=== PATIENT | female | born 1975 | race Caucasian/White ===

== ENCOUNTER 2025-02-11 17:34 | Emergency (ER) | payer OTHER, SELFPAY ==
[2025-02-11 17:57] VITALS: BP 150/80; PULSE 80; TEMP 36.7; O2SAT 98; BMI 48.9
--- NOTE | 2025-02-11 18:27 | ED_ITS ---
HPI HPI - Extremity Injury (Lower) General Chief Complaint: Extremity Injury, Lower Stated Complaint: RIGHT KNEE PAIN Time Seen by Provider: 02/11/25 18:27 Mode of arrival: walk-in History of Present Illness HPI Narrative: 49 year old female presents to the ED for pain to her right medial and posterior knee. Onset was 1-2 weeks ago. Denies fever, chills, injury, weakness, N/T. She was evaluated at an urgent care last week. States she was told she may have a cyst. States while she was having her x-rays completed today she felt something pop. Related Data Previous Rx's ?Medication ?Instructions ?Recorded hydrocodone 5 mg-acetaminophen 325 1 tab PO Q8H PRN pain 4 days #12 02/11/25 mg tablet tabs Allergies Allergy/AdvReac Type Severity Reaction Status Date / Time No Known Drug Allergies Allergy Verified 02/11/25 17:56 Opioid HPI Opioid Management Most Recent Pain and Opioid Data: No Data to Display Review of Systems ROS Constitutional Denies: fever or chills Cardiovascular Denies: chest pain Respiratory Denies: shortness of breath Musculoskeletal Reports: extremity pain and extremity swelling; Denies: back pain Neurological Denies: numbness in extremities or weakness in extremities PFSH PFSH Social History Little interest or pleasure in doing things: not at all Feeling down, depressed, or hopeless: not at all Exam Constitutional Vital Signs, click to edit/add: Last Vital Signs Temp 98.1 F 02/11/25 17:57 Pulse 80 02/11/25 17:57 Resp 18 02/11/25 17:57 BP 150/80 H 02/11/25 17:57 Pulse Ox 98 02/11/25 17:57 O2 Del Method Room Air 02/11/25 17:57 Common normals: no apparent distress, oriented x3 and alert General appearance: cooperative HENMT Common normals: moist oral mucous membranes Neck & C-Spine Common normals: supple Chest Chest: symmetrical chest wall rise Respiratory Common normals: normal respiratory effort Effort & inspection: able to speak in complete sentences Cardio Common normals: regular rhythm Peripheral pulses: posterior tibial pulses present and dorsalis pedis pulses present Extremity Other: Tenderness to right medial and posterior knee. No calf tenderness. Mild swelling noted to knee area. No deformity or discoloration. Neuro Common normals: oriented x3 and moves all extremities Sensorium/orientation: awake and alert Course Vital Signs Vital signs: Vital Signs Temperature 98.1 F 02/11/25 17:57 Pulse Rate 80 02/11/25 17:57 Respiratory Rate 18 02/11/25 17:57 Blood Pressure 150/80 H 02/11/25 17:57 Pulse Oximetry 98 02/11/25 17:57 Oxygen Delivery Method Room Air 02/11/25 17:57 Temperature 98.1 F 02/11/25 17:57 Pulse Rate 80 02/11/25 17:57 Respiratory Rate 18 02/11/25 17:57 Blood Pressure 150/80 H 02/11/25 17:57 Pulse Oximetry 98 02/11/25 17:57 Oxygen Delivery Method Room Air 02/11/25 17:57 MDM - Extremity Injury (Lower) MDM Narrative Medical decision making narrative: X-rays showed soft tissue swelling without acute osseous abnormality evident; mild degenerative changes in the knee. Venous Doppler of the RLE was negative. Findings were discussed with the patient. An aubrey wrap was applied to the right knee. The application was checked and was appropriate; the RLE remained NVI. Follow up with pcp and/or an orthopedist for a recheck, further evaluation and treatment. OARRS was reviewed. A prescription was provided for [place]. Medical Records Attestation: I reviewed the patient's medical records. Imaging Data XR : Attestation: I have reviewed the pertinent imaging results. Radiologist's impression: X-ray right knee and right tib/fib: Soft tissue swelling without acute osseous abnormality evident. Mild degenerative changes in the knee. Venous Doppler of the RLE: Negative for right lower extremity DVT. Discharge Plan Discharge Chief Complaint: Extremity Injury, Lower Clinical Impression: Knee pain, right Patient Disposition: Home, Self-Care Time of Disposition Decision: 20:18 Condition: Good Mode of Transportation: Private Vehicle Prescriptions / Home Meds: New hydrocodone-acetaminophen 5-325 mg tablet 1 tab PO Q8H PRN (Reason: pain) 4 Days Qty: 12 0RF Print Language: [place] Instructions: Knee Pain (ED) Referrals: CHRIS BOWEN [Primary Care Provider] - 1 week Jerry Gerber MD [Physician] - 1 week
[2025-02-11] MEDS: HYDROCODONE/ACET 5-325 MG TABLET 1 TAB PO (18:45)
== END 2025-02-11 20:23 | disposition home or self-care (01) ==
PROVIDERS: Emergency Provider Emergency Medicine; PCP Internal Medicine
DX: M25.561 Pain in right knee (principal); M79.89 Other specified soft tissue disorders
CPT/HCPCS: 73562; 73590; 93971; 99285

== ENCOUNTER 2025-02-28 10:26 | Emergency (ER) | payer OTHER, SELFPAY ==
[2025-02-28 10:27] VITALS: BP 137/86; PULSE 85; TEMP 36.9; O2SAT 98; BMI 48.1
--- NOTE | 2025-02-28 10:43 | ECG_ITS ---
[facility] Test Date: 2025-02-28 Pat Name: CAMILA ARCHIBALD Department: Room: - Gender: Female Hospice Admitting Clerk: : 1975 Requested By: [id number] Order Number: [id number] Reading MD: JEFF DILL M.D. Measurements Intervals [place] Rate: 82 P: 55 CA: 130 QRS: 54 QRSD: 86 T: 49 QT: 368 QTc: 407 Interpretive Statements 1100 Sinus rhythm 9110 normal ECG No previous ECG available for comparison Electronically Signed On 03-01-2025 6:25:00 EDT by JEFF DILL M.D.
--- OUTSIDE RECORDS SUMMARY | 2025-02-28 10:46 | XMS_ITS | CCD ---
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 Name Role Phone MIGUEL CHAIREZ Attending Unavailable MIGUEL CHAIREZ Consulting Unavailable MIGUEL CHAIREZ Admitting DR OLAF Quintero Primary Care Unavailable TITO SCHWARZ Consulting Unavailable PROVIDER, UNKNOWN Attending Unavailable PROVIDER, UNKNOWN Admitting Unavailable LIAT TELLO Referring Unava Olaf Ny MD Primary Care Provider JOSE LUTZ Attending Unavailable HEMLORRANIE PAYNE Attending Unavailable HEMLORRAINE PAYNE Attending Unavailable HEMLORRAINE PAYNE Referring Unavailable HEMLORRAINE PAYNE Attending Unavailable ALTMIKE Attending Unavailable Allergies Allergy Classification Reported Allergen(s) Allergy Type Date of Onset Reaction(s) Facility (1 source) Latex Drug allergy (disorder) 7 [facility] Repository (6 sources) Latex Allergy to substance 1 [facility] Healthcare (6 sources) Semaglutide Propensity to adverse reactions 4 GI intolerance [facility] Medications Current Medications Medication Drug Class(es) Dates Sig (Normalized) Sig (Original) azelastine hydrochloride 0.137 mg/actuat metered dose nasal spray (6 sources) Histamine-1 Receptor Antagonist Start: 07-08-2024 take 1 spray(s) nasal route in the morning Azelastine HCl 137 MCG/SPRAY solution Indications: Seasonal allergic rhinitis due to pollen Administer 1 spray into affected nostril(s) in the morning and 1 spray before bedtime. Do all this for 14 days. 30 mL 07/08/2024 Active Blood Glucose Monitoring Suppl (Blood Glucose Monitor System) w/Device kit (6 sources) Start: 07-08-2024 Blood Glucose Monitoring Suppl (Blood Glucose Monitor System) w/Device kit Indications: Type 2 diabetes mellitus with other specified complication, without long-term current use of insulin ([facility]) 1 each Daily 1 kit 07/08/2024 Active citalopram 40 mg oral tablet (6 sources) Serotonin Reuptake Inhibitor Start: 07-08-2024 take 1 tablet by mouth once daily citalopram (CeleXA) 40 MG tablet Indications: Depression with anxiety Take 1 tablet (40 mg) by mouth Daily 90 tablet 3 07/08/2024 Active metFORMIN hydrochloride 500 mg oral tablet (6 sources) Biguanide Start: 02-04-2025 take 1 tablet by mouth in the morning metFORMIN (Glucophage) 500 MG tablet Indications: Type 2 diabetes mellitus with other specified complication, without long-term current use of insulin (CMS/HCC) Take 1 tablet (500 mg) by mouth in the morning and 1 tablet (500 mg) in the evening. Take with meals. 30 tablet 02/04/2025 Active Start: 07-08-2024 take 1 tablet by juancarlos th in the morning metFORMIN (Glucophage) 500 MG tablet Indications: Type 2 diabetes mellitus with other specified complication, without long-term current use of insulin (CMS/HCC) Take 1 tablet (500 mg) by mouth in the morning and 1 tablet (500 mg) in the evening. Take with meals. 60 tablet 5 07/08/2024 Active predniSONE 10 mg oral tablet (2 sources) Start: 02-16-2025 End: 02-24-2025 take 1 tablet by mouth three times daily, then take 1 tablet by mouth twice daily, then take 1 tablet by mouth once daily predniSONE (Deltasone) 10 MG tablet Indications: Primary osteoarthritis of right knee Take 1 tablet (10 mg) by mouth 3 (three) times a day for 3 days, THEN 1 tablet (10 mg) 2 (two) times a day for 3 days, THEN 1 tablet (10 mg) Daily for 3 days. 18 tablet 02/16/2025 02/24/2025 Active Completed/Discontinued Medications Medication Drug Class(es) Dates Sig (Normalized) Sig (Original) amoxicillin 875 mg / clavulanate 125 mg oral tablet (2 sources) Penicillin-class Antibacterial Start: 10-07-2024 End: 10-14-2024 take 1 tablet by mouth in the morning amoxicillin-clavu lanate (Augmentin) 875-125 MG tablet Indications: Acute non-recurrent maxillary sinusitis Take 1 tablet (875 mg) by mouth in the morning and 1 tablet (875 mg) in the evening. Take with meals. Do all this for 7 days. 14 tablet 10/07/2024 10/14/2024 cetirizine hydrochloride 10 mg oral tablet (6 sources) Histamine-1 Receptor Antagonist Start: 07-08-2024 End: 02-16-2025 take 1 tablet by mouth once daily cetirizine (ZyrTEC) 10 MG tablet Indications: Seasonal allergic rhinitis due to pollen Take 1 tablet (10 mg) by mouth Daily 30 tablet 07/08/2024 02/16/2025 Discontinued (Other) fluticasone propionate 0.05 mg/actuat metered dose nasal spray (6 sources) Corticosteroid Start: 02-04-2024 End: 02-16-2025 take 2 spray(s) nasal route once daily as needed for rhinitis fluticasone (Flonase) 50 MCG/ACT nasal spray Indications: Acute non-recurrent maxillary sinusitis Administer 2 sprays into each nostril Daily as needed for rhinitis Shake gently. Before first use, prime pump. After use, clean tip and replace cap. 16 g 02/04/2024 02/16/2025 Discontinued (Other) Problems Active Problems Problem Classification Problem Date Documented Date Episodic/Chronic Anxiety disorders (6 sources) Mixed anxiety and depressive disorder; Translations: [Other specified anxiety disorders] Onset: 07-08-2024 07-08-2024 Chronic Asthma (6 sources) Asthma; Translations: [Unspecified asthma, uncomplicated] Onset: 07-08-2024 07-08-2024 Chronic Diabetes mellitus without complication (18 sources) Type 2 diabetes mellitus; Translations: [Type 2 diabetes mellitus without complications] Onset: 07-08-2024 Resolved: 07-08-2024 10-15-2024 Chronic Disorders of lipid metabolism (6 sources) Raised low density lipoprotein cholesterol; Translations: [Pure hypercholesterolemia, unspecified] Onset: 07-08-2024 07-08-2024 Chronic E Codes: Natural/environment (1 source) Other and unspecified overexertion or strenuous movements or postures, initial encounter; Translations: [OTH AND UNS OVREXRT/STRN MVMT/POS INT] Onset: 10-03-2021 Episodic Osteoarthritis (2 sources) Osteoarthritis of right knee joint; Translations: [Unilateral primary osteoarthritis, right knee] 02-16-2025 Chronic Other connective tissue disease (3 sources) Pain in left leg; Translations: [PAIN IN LEFT LEG] Onset: 10-02-2021 Episodic Other endocrine disorders (6 sources) Polycystic ovary syndrome; Translations: [Polycystic ovarian syndrome] Onset: 07-08-2024 07-08-2024 Chronic Other nervous system disorders (6 sources) Chronic pain; Translations: [Other chronic pain] Onset: 07-08-2024 Resolved: 07-08-2024 07-08-2024 Chronic Other nutritional; endocrine; and metabolic disorders (10 sources) Obesity caused by energy imbalance; Translations: [Morbid (severe) obesity due to excess calories] Onset: 07-08-2024 10-07-2024 Chronic Other nutritional; endocrine; and metabolic disorders (8 sources) Body mass index 40+ - severely obese; Translations: [Body mass index (BMI) 50.0-59.9, adult] Onset: 07-08-2024 Resolved: 10-07-2024 10-07-2024 Chronic Other screening for suspected conditions (not mental disorders or infectious disease) (1 source) Encounter for screening mammogram for malignant neoplasm of breast; Translations: [Encounter for screening mammogram for malignant neoplasm of breast] Onset: 08-07-2023 Episodic Other upper respiratory disease (6 sources) Seasonal allergic rhinitis; Translations: [Other seasonal allergic rhinitis] Onset: 07-08-2024 07-08-2024 Chronic Other upper respiratory infections (2 sources) Acute maxillary sinusitis; Translations: [Acute maxillary sinusitis, unspecified] 10-07-2024 Episodic Sprains and strains (1 source) Strain of other specified muscles, fascia and tendons at thigh level, left thigh, initial encounter; Translations: [STRAIN OTH MUSC FASC THIGH LT INIT] Onset: 10-03-2021 Episodic Past or Other Problems Problem Classification Problem Date Documented Da te Episodic/Chronic Diseases of white blood cells (6 sources) Leukocytosis; Translations: [Elevated white blood cell count, unspecified] Onset: 07-08-2024 Resolved: 07-08-2024 07-08-2024 Chronic Joint disorders and dislocations; trauma-related (6 sources) Derangement of left knee; Translations: [Unspecified internal derangement of left knee] Onset: 07-08-2024 Resolved: 07-08-2024 07-08-2024 Chronic Neoplasms of unspecified nature or uncertain behavior (6 sources) Thrombocytosis; Translations: [Thrombocytosis] Onset: 07-08-2024 07-08-2024 Episodic Other connective tissue disease (6 sources) Muscle pain; Translations: [Myalgia, unspecified site] Onset: 01-01-2024 01-01-2024 Episodic Other upper respiratory infections (6 sources) Sinusitis; Translations: [Chronic sinusitis, unspecified] Onset: 07-08-2024 Resolved: 07-08-2024 07-08-2024 Chronic Results Test Name Value Interpretation Reference Range Facil ity ALBUMIN, RANDOM URINE W/CREA TININEon 02-09-2025 ALBUMIN, URINE 1.5 mg/dL Normal See Note: [facility] Comment on above: Result Comment: Refe rence Range: Reference Range Not established Performed By: #### 6 517, 490, 3109 #### [facility] [address], [address] [place] [address] Veterinary Milk Specialist: Hermelindo Watson MD #### [id number], [id number] #### [facility] [address] [place] [phone] Veterinary Milk Specialist: Damari Marin ALBUMIN/CREATININE RATIO, RANDOM URINE 5 mg/g creat Normal <30 [facility] Comment on above: Result Comment: The ADA defines abnormalities in albumin excretion as follows: Albuminuria Category Result (mg/g creatinine) Normal to Mildly increased <30 Moderately increased 30-299 Severely increased > OR = 300 The ADA recommends that at least two of three specimens collected within a 3-6 month period be abnormal before considering a patient to be within a diagnostic category. Performed By: #### 6 517, 591, 8262 #### [facility] [address], [address] [place], [place] [id number] Veterinary Milk Specialist: Hermelindo Watson MD #### [id number], 6419 #### [facility] [address] [place] [phone] Veterinary Milk Specialist: Damari Marin Creatinine (U) [Mass/Vol] 273 mg/dL Normal 20-275 [facility] Comment on above: Performed By: #### 6 517, 496, 9909 #### [facility] [address], [address] [place] [address] Veterinary Milk Specialist: Hermelindo Watson MD #### [id number], 1759 #### [facility] [address] Veterinary Milk Specialist: Damari Marin CBC (H/H, RBC, INDICES, WBC, PLT)on 02-09-2025 Erythrocyte distribution width (RBC) [Ratio] 13.7 % Normal 11.0-15.0 [facility] Comment on above: Performed By: #### 6 517, 496, 7600 #### [facility] [address], [address] [place] [address] Veterinary Milk Specialist: Hermelindo Watson MD #### [id number], 1759 #### [facility] [address] Veterinary Milk Specialist: Damari Marin Hematocrit (Bld) [Volume fraction] 42.6 % Normal 35.0-45.0 [facility] Comment on above: Performed By: #### 6 517, 496, 7600 #### [facility] [address], [address] [place] [address] Veterinary Milk Specialist: Hermleindo Watson MD #### [id number], 1759 #### [facility] [address] Veterinary Milk Specialist: Damari Marin Hemoglobin (Bld) [Mass/Vol] 13.9 g/dL Normal 11.7-15.5 [facility] Comment on above: Performed By: #### 6 517, 496, 7600 #### [facility] [address], [address] [place] [address] Veterinary Milk Specialist: Hermelindo Watson MD #### [id number], 1759 #### [facility] Veterinary Milk Specialist: Damari Marin MCH (RBC) [Entitic mass] 29.6 pg Normal 27.0-33.0 [facility] Comment on above: Performed By: #### 6 517, 496, 7600 #### [facility] [place] [address] Veterinary Milk Specialist: Hermelindo Watson MD #### [id number], 175 #### [facility] [address] Veterinary Milk Specialist: Damari Marin MCHC (RBC) [Mass/Vol] 32.6 g/dL Normal 32.0-36.0 [facility] Comment on above: Result Comment: For adults, a slight decrease in the calculated MCHC value (in the range of 30 to 32 g/dL) is most likely not clinically significant; however, it should be interpreted with caution in correlation with other red cell parameters and the patient's clinical condition. Performed By: #### 6 517, 496, 8320 #### [facility] [place] [address] Veterinary Milk Specialist: Hermelindo Watson MD #### [id number], 175 #### [facility] [address] Veterinary Milk Specialist: Damari Marin MCV (RBC) [Entitic vol] 90.8 fL Normal 80.0-100.0 [facility] Comment on above: Performed By: #### 6 517, 499, 9600 #### [facility] [place] [address] Veterinary Milk Specialist: Hermelindo Watson MD #### [id number], 175 #### [facility] [address] Veterinary Milk Specialist: Damari Marin Platelet mean volume (Bld) [Entitic vol] 8.5 fL Normal 7.5-12.5 [facility] Comment on above: Performed By: #### 6 517, 496, 7600 #### [facility] [address], [address] [place] [address] Veterinary Milk Specialist: Hermelindo Watson MD #### [id number], 175 #### [facility] Veterinary Milk Specialist: Damari Marin Platelets (Bld) [#/Vol] 397 10*3/uL Normal 140-400 [facility] Comment on above: Performed By: #### 6 517, 496, 7600 #### [facility] [address], [address] [place] [address] Veterinary Milk Specialist: Hermelindo Watson MD #### [id number], 1759 #### [facility] Veterinary Milk Specialist: Damari Marin RBC (Bld) [#/Vol] 4.69 10*6/uL Normal 3.80-5.10 [facility] Comment on above: Performed By: #### 6 517, 496, 7600 #### [facility] [address], [address] [place] [address] Veterinary Milk Specialist: Hermelindo Watson MD #### [id number], 1759 #### [facility] [address] Veterinary Milk Specialist: Damari Marin WBC (Bld) [#/Vol] 8.0 10*3/uL Normal 3.8-10.8 [facility] Comment on above: Performed By: #### 6 517, 496, 7600 #### [facility] [address], [address] [place] [address] Veterinary Milk Specialist: Hermelindo Watson MD #### [id number], 1759 #### [facility] [address] Veterinary Milk Specialist: Damari Marin COMPREHENSIVE METABOLIC PANE [facility] 02-09-2025 Albumin [Mass/Vol] 3.7 g/dL Normal 3.6-5.1 [facility] Comment on above: Performed By: #### 6 517, 496, 7600 #### [facility] [address], [address] [place] [address] Veterinary Milk Specialist: Hermelindo Watson MD #### [id number], 1759 #### [place] [address] Veterinary Milk Specialist: Damari Marin Albumin/Globulin [Mass ratio] 1.2 {ratio} Normal 1.0-2.5 [facility] Comment on above: Performed By: #### 6 517, 496, 7600 #### [facility] [address], [address] [place] [address] Veterinary Milk Specialist: Hermelindo Watson MD #### [id number], 1759 #### [place] [address] Veterinary Milk Specialist: Damari Marin ALP [Catalytic activity/Vol] 55 U/L Normal 31-125 [facility] Comment on above: Performed By: #### 6 517, 496, 7600 #### [facility] [address], [address] [place] [address] Veterinary Milk Specialist: Hermelindo Watson MD #### [id number], 1759 #### [place] [address] Veterinary Milk Specialist: Damari Marin ALT [Catalytic activity/Vol] 20 U/L Normal 6-29 [facility] Comment on above: Performed By: #### 6 517, 496, 7600 #### [facility] [address], [address] [place] [address] Veterinary Milk Specialist: Hermelindo Watson MD #### [id number], 1759 #### [facility] [phone] Veterinary Milk Specialist: Damari Marin AST [Catalytic activity/Vol] 23 U/L Normal 10-35 [facility] Comment on above: Performed By: #### 6 517, 496, 7600 #### [facility] [address], [address] [place] [address] Veterinary Milk Specialist: Hermelindo Watson MD #### [id number], 1759 #### [facility] [phone] Veterinary Milk Specialist: Damari Marin Bilirubin [Mass/Vol] 0.6 mg/dL Normal 0.2-1.2 [facility] Comment on above: Performed By: #### 6 517, 496, 7600 #### [facility] [address], [address] [place] [address] Veterinary Milk Specialist: Hermelindo Watson MD #### [id number], 1759 #### [facility] [address] [place] [address] Veterinary Milk Specialist: Damari Marin BUN/CREATININE RATIO SEE NOTE: Normal 6- [facility] Comment on above: Result Comment: Not Reported: BUN and Creatinine are within reference range. Performed By: #### 6 517, 496, 7600 #### [facility] [address], [address] [place] [address] Veterinary Milk Specialist: Hermelindo Watson MD #### [id number], 1759 #### [facility] [address] [place] [address] Veterinary Milk Specialist: Damari Marin Calcium [Mass/Vol] 8.8 mg/dL Normal 8.6-10.2 [facility] Comment on above: Performed By: #### 6 517, 496, 7600 #### [facility] [address], [address] [place] [address] Veterinary Milk Specialist: Hermelindo Watson MD #### [id number], 1759 #### [facility] [address] [place] [address] Veterinary Milk Specialist: Damari Marin Chloride [Moles/Vol] 105 mmol/L Normal 98-110 [facility] Comment on above: Performed By: #### 6 517, 496, 7600 #### [facility] [address], [address] [place] [address] Veterinary Milk Specialist: Hermelindo Watson MD #### [id number], 1759 #### [facility] [address] [place] [address] Veterinary Milk Specialist: Damari Marin CO2 [Moles/Vol] 23 mmol/L Normal 20-32 [facility] Comment on above: Performed By: #### 6 517, 496, 7600 #### [facility] [address], [address] [place] [address] Veterinary Milk Specialist: Hermelindo Watson MD #### [id number], 1759 #### [facility] [address] Veterinary Milk Specialist: Damari Marin Creatinine [Mass/Vol] 0.70 mg/dL Normal 0.50-0.99 [facility] Comment on above: Performed By: #### 6 517, 496, 7600 #### [facility] [place] [address] Veterinary Milk Specialist: Hermelindo Watson MD #### 64720, 1759 #### [facility] [address] Veterinary Milk Specialist: Damari Marin GFR/1.73 sq M.predicted among non-blacks MDRD (S/P/Bld) [Vol rate/Area] 107 mL/min/{1.73_m2} Normal > OR = 60 [facility] Comment on above: Performed By: #### 6 517, 496, 7600 #### [facility] [place] [address] Veterinary Milk Specialist: Hermelindo Watson MD #### [id number], 1759 #### [facility] [address] Veterinary Milk Specialist: Damari Marin Globulin (S) [Mass/Vol] 3.0 g/dL Normal 1.9-3.7 [facility] Comment on above: Performed By: #### 6 517, 496, 7600 #### [facility] [place] [address] Veterinary Milk Specialist: Hermelindo Watson MD #### 21940, 1759 #### [facility] [phone] Veterinary Milk Specialist: Damari Marin Glucose [Mass/Vol] 172 mg/dL High 65-99 [facility] Comment on above: Result Comment: Fasting reference interval For someone without known diabetes, a glucose value >125 mg/dL indicates that they may have diabetes and this should be confirmed with a follow-up test. Performed By: #### 6 517, 496, 7600 #### [facility] [address], [address] [place] [address] Veterinary Milk Specialist: Hermelindo Watson MD #### [id number], 1759 #### [facility] [address] Veterinary Milk Specialist: Damari Springeri Potassium [Moles/Vol] 4.6 mmol/L Normal 3.5-5.3 [facility] Comment on above: Performed By: #### 6 517, 496, 7600 #### [facility] [address], [address] [place] [address] Veterinary Milk Specialist: Hermelindo Watson MD #### [id number], 1759 #### [facility] [address] Veterinary Milk Specialist: Damari Springeri Protein [Mass/Vol] 6.7 g/dL Normal 6.1-8.1 [facility] Comment on above: Performed By: #### 6 517, 496, 7600 #### [facility] [address], [address] [place] [address] Veterinary Milk Specialist: Hermelindo Watson MD #### [id number], 1759 #### [facility] [address] [place] [address] Veterinary Milk Specialist: Damari Carballo Flati Sodium [Moles/Vol] 136 mmol/L Normal 135-146 [facility] Comment on above: Performed By: #### 6 517, 496, 7600 #### [facility] [address], [address] [place] [address] Veterinary Milk Specialist: Hermelindo Watson MD #### 64459, 1759 #### [facility] [address] [place] [phone] Veterinary Milk Specialist: Damari Marin Urea nitrogen [Mass/Vol] 11 mg/dL Normal 7-25 [facility] Comment on above: Performed By: #### 6 517, 496, 7600 #### [facility] [address], [address] [place], [place] [id number] Veterinary Milk Specialist: Hermelindo Watson MD #### [id number], 1759 #### [facility] [address] [place] [phone] Veterinary Milk Specialist: Damari Marin HEMOGLOBIN A1con 02-09-2025 HEMOGLOBIN A1c 7.4 % of total Hgb High <5.7 [facility] Comment on above: Result Comment: For someone without known diabetes, a hemoglobin A1c value of 6.5% or greater indicates that they may have diabetes and this should be confirmed with a follow-up test. For someone with known diabetes, a value <7% indicates that their diabetes is well controlled and a value greater than or equal to 7% indicates suboptimal control. A1c targets should be individualized based on duration of diabetes, age, comorbid conditions, and other considerations. Currently, no consensus exists regarding use of hemoglobin A1c for diagnosis of diabetes for children. Performed By: #### 6 517, 496, 7600 #### [facility] [address], [address] [place] [address] Veterinary Milk Specialist: Hermelindo Watson MD #### [id number], 1759 #### [facility] [address] [place] [phone] Veterinary Milk Specialist: Damari Marin LIPID PANEL, STANDARDon 01-24 Cholesterol [Mass/Vol] 181 mg/dL Normal <200 [facility] Comment on above: Order Comment: FASTI NG:YES FASTING: YES Performed By: #### 6 517, 496, 7600 #### [facility] [address], [address] [place] [address] Veterinary Milk Specialist: Hermelindo Watson MD #### 76607, 1759 #### [facility] [address] [place] [address] Veterinary Milk Specialist: Damari Marin Cholesterol in HDL [Mass/Vol] 60 mg/dL Normal > OR = 50 [facility] Comment on above: Order Comment: FASTI NG:YES FASTING: YES Performed By: #### 6 517, 496, 8641 #### [facility] [address] [facility], [address] [place] [phone] Veterinary Milk Specialist: Hermelindo Watson MD #### 42846, 1754 #### [facility] [address] [place] [phone] Veterinary Milk Specialist: Damari Springeri Cholesterol in LDL [Mass/Vol] 104 mg/dL [facility] Comment on above: Order Comment: FASTI NG:YES FASTING: YES Result Comment: Refe rence range: <100 Desirable range <100 mg/dL for primary prevention; <70 mg/dL for patients with CHD or diabetic patients with > or = 2 CHD risk factors. LDL-C is now calculated using the Jameson-Tristian calculation, which is a validated novel method providing better accuracy than the Friedewald equation in the estimation of LDL-C. Jameson SS et al. ALIX. 2013;310(19): 6329-1438 (http://education.[employer]/faq/KDK919) Performed By: #### 6 725, 491, 6120 #### [facility] [address], [address] [place] [phone] Veterinary Milk Specialist: Hermelindo Watson MD #### 80663, 2800 #### [facility] [address] [place] [phone] Veterinary Milk Specialist: Damari Marin Cholesterol.total/C holesterol in HDL [Mass ratio] 3.0 {ratio} Normal <5.0 [facility] Comment on above: Order Comment: FASTI NG:YES FASTING: YES Performed By: #### 6 517, 496, 8383 #### [facility] [address] [facility], [address] [place] [address] Veterinary Milk Specialist: Hermelindo Watson MD #### [id number] #### [facility] [place] [address] Veterinary Milk Specialist: Damari Marin NON HDL CHOLESTEROL 121 mg/dL (calc) Normal <130 [facility] Comment on above: Order Comment: FASTI NG:YES FASTING: YES Result Comment: For patients with diabetes plus 1 major ASCVD risk factor, treating to a non-HDL-C goal of <100 mg/dL (LDL-C of <70 mg/dL) is considered a therapeutic option. Performed By: #### 6 [phone] #### [facility] [address], [address] [place] [address] Veterinary Milk Specialist: Hermelindo Watson MD #### [id number], [id number] #### [facility] [address] [place] [id number] Veterinary Milk Specialist: Damari Marin Triglyceride [Mass/Vol] 82 mg/dL Normal <150 [facility] Comment on above: Order Comment: FASTI NG:YES FASTING: YES Performed By: #### 6 [phone], [phone] #### [facility] [address], [address] [place] [address] Veterinary Milk Specialist: Hermelindo Watson MD #### [id number], [id number] #### [facility] [address] [place] [phone] Veterinary Milk Specialist: Damari Marin Laboratory - Hematology and Cell countson 10-07-2024 HbA1c (Bld) [Mass fraction] 7 % [facility] scroll kit No Panel Informationon 10-07 [facility] Healthcar e BI MAMMOGRAM SCREENING TOMOS YNTHESIS BILATERALon 08-19-2024 BI MAMMOGRAM SCREENING TOMOSYNTHESIS BILATERAL This is a summary report. The complete report is available in the patient's medical record. If you cannot access the medical record, please contact the sending organization for a detailed fax or copy. ADDENDUM #1 ADDENDUM: Images from prior study dated 08/07/2023 are now available for comparison. Findings are similar to the prior exam. No change in the report. ELECTRONICALLY SIGNED BY: Nick Bernard M.D. Examination: BI MAMMOGRAM SCREENING TOMOSYNTHESIS BILATERAL Clinical History: screening Technique: Screening digital mammography study of both breasts was performed with 2-D and 3-D tomosynthesis imaging. No prior exam available for comparison. Findings: There is no evidence of dominant spiculated mass, grouped microcalcifications, or skin thickening which would be suggestive of malignancy. A few benign-appearing calcifications are seen bilaterally. Axillary lymph nodes are noted on the left. IMPRESSION: Impression: No specific evidence of malignancy seen in either breast. Breast Density: There are scattered areas of fibroglandular density BiRads: BIRADS 2 - Benign Recommended follow-up: Routine Screening Mamm ELECTRONICALLY SIGNED BY: Nick Bernard M.D. Normal Not Available MG MAMMO SCREEN BILAT KATHY W /CADon 08-13-2023 MG MAMMO SCREEN BILAT KATHY W/CAD EXAM: BILATERAL SCREENING MAMMOGRAM W/TOMOSYNTHESIS AND CAD CLINICAL HISTORY: Patient is 48 years old and is seen for screening. The patient has no personal history of cancer. The patient has no family history of breast cancer. COMPARISON: This is a baseline study. TECHNIQUE: The following mammographic views were obtained: bilateral CC, CC with tomosynthesis, MLO and MLO with tomosynthesis; left axillary tail; right XCCL and anterior mediolateral oblique. Computer-aided detection was utilized by the radiologist in the interpretation of this examination. MAMMOGRAM FINDINGS: There are scattered areas of fibroglandular densities. No suspicious masses, calcifications, architectural distortion or other abnormalities are seen in either breast. IMPRESSION: There is no mammographic evidence of malignancy in either breast. Routine screening mammogram in 1 year is recommended. BI-RADS Category 1: Negative RISK ASSESSMENT: Estimated lifetime breast cancer risk: Average (less than 15%, as per the Tyrer-Cuzick/ALEISHA model) NCI Lifetime Risk Score: 9.3% Normal [facility] XR HIP LT 2 3V W PELVISon XR HIP LT 2 3V W PELVIS EXAM: XR HIP LT 2 3V W PELVIS, XR FEMUR LT, XR KNEE LT 4V or > HISTORY: Pain COMPARISON: None. TECHNIQUE: 2 views left hip, 2 views left femur, 4 views left knee. FINDINGS: No acute fracture. Hip joint is maintained. There is mild narrowing of the medial compartment of the knee. No effusion. No pathologic calcification. No evidence of radiopaque foreign body. IMPRESSION: 1. No acute bony abnormality. 2. Mild medial compartment osteoarthritis of the left knee. 3. Normal left hip. Electronically authenticated by: TITO SCHWARZ Date: 2021-10-02 03:13 Normal [facility] Vital Signs Date Time Vital Sign Value Performing Clinician Faci lity 02-16-2025 16:40-0400 Body height 162.6 cm Lorraine Hemmer PA Work Phone: [facility] scroll kit 02-16-2025 16:40-0400 Body mass index (BMI) [Ratio] 49.47 kg/m2 Lorraine Hemmer PA Work Phone: [facility] 02-16-2025 16:40-0400 Body weight 130.73 kg Lorraine Hemmer PA Work Phone: [facility] 02-16-2025 16:40-0400 Diastolic blood pressure 82 mm[Hg] Lorraine Hemmer PA Work Phone: [facility] 02-16-2025 16:40-0400 Heart rate 86 /min Lorraine Hemmer PA Work Phone: [facility] 02-16-2025 16:40-0400 Respiratory rate 16 /min Lorraine Hemmer PA Work Phone: [facility] 02-16-2025 16:40-0400 SaO2% (BldA) [Mass fraction] 97 % Lorraine Hemmer PA Work Phone: [facility] scroll kit 02-16-2025 16:40-0400 Systolic blood pressure 130 mm[Hg] Lorraine Hemmer PA Work Phone: [facility] 10-07-2024 16:27-0500 Body height 162.6 cm Lorraine Hemmer PA Work Phone: [facility] 10-07-2024 16:27-0500 Body mass index (BMI) [Ratio] 49.44 kg/m2 Lorraine Hemmer PA Work Phone: [facility] 10-07-2024 16:27-0500 Body weight 130.64 kg Lorraine Humphriesmer PA Work Phone: [facility] 10-07-2024 16:27-0500 Diastolic blood pressure 76 mm[Hg] Lorraine Humphriesmer PA Work Phone: [facility] 10-07-2024 16:27-0500 Heart rate 82 /min Lorraine Hemmer PA Work Phone: [facility] 10-07-2024 16:27-0500 SaO2% (BldA) [Mass fraction] 99 % Lorraine Humphriesmer PA Work Phone: [facility] 10-07-2024 16:27-0500 Systolic blood pressure 130 mm[Hg] Lorraine Hemmer PA Work Phone: [facility] Encounters Encounter Date Encounter Type Care Provider Facility Start: 02-16-2025 End: 02-16-2025 Office outpatient visit 25 minutes Lorraine Roberts PA Work Phone: [facility] Comment on above: Primary osteoarthrit is of right knee (Primary Dx); Type 2 diabetes mellitus with other specified complication, without long-term current use of insulin ([facility]); Morbid (severe) obesity due to excess calories (CMS/[facility]); BMI 45.0-49.9, adult (CMS/HCC) Start: 02-16-2025 End: 02-17-2025 ambulatory LORRAINE ROBERTS Not Available Start: 02-16-2025 End: 02-16-2025 Bamboo flowsheet Lorraine Roberts PA Work Phone: [facility] Start: 02-16-2025 End: 02-16-2025 Bamboo flowsheet Lorraine Humphriesmer PA Work Phone: [facility] Start: 02-06-2025 End: 02-06-2025 ambulatory JOSE LUTZ Not Available Start: 12-12-2024 End: 12-12-2024 ambulatory MIKE GAMEZ Not Available Start: 12-12-2024 End: 12-12-2024 Bamboo flowsheet Mike Gamez RN [facility] Start: 12-12-2024 End: 12-12-2024 Bamboo flowsheet Mike Gamez RN [facility] Start: 10-07-2024 End: 10-07-2024 Office outpatient visit 25 minutes Lorraine MILLER Work Phone: [facility] Comment on above: Type 2 diabetes arielle itus with other specified complication, without long-term current use of insulin ([facility]) (Primary Dx); Morbid (severe) obesity due to excess calories ([facility]); Acute non-recurrent maxillary sinusitis Start: 10-07-2024 End: 10-07-2024 ambulatory LORRAINE ROBERTS Not Available Start: 08-19-2024 End: 08-19-2024 ambulatory LORRAINE ROBERTS Not Available Start: 07-08-2024 End: 07-08-2024 ambulatory LORRAINE ROBERTS Not Available Start: 08-07-2023 ambulatory [facility] Start: 10-02-2021 End: 10-02-2021 ambulatory MIGUEL NOVICE Facility: Procedures Date Procedure Procedure Detail Performing Clinician Start: 10-07-2024 Hemoglobin glycosyla regulo a1c Lorraine MILLER Work Phone: Start: 08-19-2024 Mammography Lorraine MILLER Work Phone: Plan of Treatment Date Care Activity Detail Author Start: 08-06-2027 Screening for malign ant neoplasm of colon [facility] Start: 10-29-2026 Glaucoma screening Diabetes: R etinopathy Screening [facility] Start: 02-06-2026 Urine screening for protein Diabetes: Urine Protein Screening [facility] Start: 08-19-2025 Screening for malign ant neoplasm of breast Mammogram [facility] Start: 05-19-2025 End: 05-19-2025 Patient encounter procedure 05/19/2025 8:00 AM EDT Office Visit [facility] [address] [place] [id number] Lorraine Roberts PA [address] [place] [address] [facility] Start: 05-09-2025 Hemoglobin A1c measurement Diabetes: Hemoglobin A1C [facility] Start: 02-16-2025 End: 02-16-2025 Patient encounter procedure 02/16/2025 4:30 PM EDT Office Visit [facility] [address] [place] [address] Lorraine Roberts PA [address] [place] [address] Arrived [facility] Comment on above: Arrived Start: 01-07-2025 End: 01-07-2025 Patient encounter procedure 01/07/2025 4:30 PM EST Office Visit [facility] [address] [place] [address] Lorraine Roberts PA [address] [place] [address] [facility] Start: 01-07-2025 Hemoglobin A1c measurement Diabetes: Hemoglobin A1C [facility] Start: 12-24-2024 Urine screening for protein Diabetes: Urine Protein Screening [facility] Start: 12-12-2024 End: 12-12-2024 Clinical Support 12/12/2024 3:00 PM EST Clinical Support [facility] [address] [place] [address] Mike Gamez RN Arrived [facility] Comment on above: Arrived Start: 07-27-2024 Influenza vaccination Influenza Vacc ine (#1) [facility] Start: 2007 Screening for malign ant neoplasm of cervix [facility] Start: 1998 Screening for malign ant neoplasm of cervix Pap Smear [facility] Start: 1987 Glaucoma screening Diabetes: R etinopathy Screening [facility] Start: 1977 Screening for malign ant neoplasm of colon [facility] Immunizations Immunization Date Immunization Notes Care Provider Fa cility 11-01-2017 Influenza, injectabl e, Madin Glo Canine Kidney, preservative free, quadrivalent Lorraine MILLER Work Phone: [facility] Work Phone: 11-01-2017 influenza virus vaccine, unspecified formulation Lorraine MILLER Work Phone: [facility] Healthcare Payers Date Payer Category Payer Private Health Insurance [facility] [id number] 2022 Private Health Insurance [id number] 1977 Unknown [id number] 1977 Unknown [id number] [id number] 1977 Unknown [id number] [id number] 1977 Unknown [id number] 2.9 1977 Unknown [id number] [id number] 1977 Unknown [id number] [id number] 1977 Unknown [id number] [id number] 1977 Unknown [id number] [id number] 1959 Unknown [id number] Social History Date Type Detail Facility Start: 06-08-2023 Tobacco smoking stat [facility] Never smoked tobacco [facility] Start: 06-08-2023 Tobacco use and exposure Smoke less tobacco non-user [facility] Start: 10-07-2024 End: 02-16-2025 Alcoholic beverage intake Current drinker of alcohol (finding) [facility] Start: 10-07-2024 End: 02-16-2025 History of Social function [facility] Start: 10-07-2024 End: 02-16-2025 [id number] Health Literacy [facility] How often do you nee d to have someone help you when you read instructions, pamphlets, or other written material from your doctor or pharmacy [SILS] Patient declines to respond [facility] Start: 09-29-2023 Alcohol Comment socially. caff eine intake: soda/pop 3-4 cans a day. [facility] Start: 1975 Sex assigned at Not on file N [facility] Medical Equipment Procedure Code Equipment Code Equipment Origin al Text Equipment Identifier Dates 1 each by In Vit ro route Daily [id number] Start: 07-08-2024 1 each Daily [id number] Start: 07-08-2024 History of Present illness Narrative 02-16-2025 PAUL Boyle - 02/16/2025 4:30 PM EDT Note Date & Type Note Facility 02-16-2025 History of Presen t illness Narrative Images from the original note were not included. HPI Knee Pain Additional comments: States she went to urgent care on 02/06/25 for right knee pain and they though it was bursa, they rx'd Toradol and it didn't help so then went to [facility] ER 02/11/25 and they diagnosed her with knee pain, they did x-rays, and US, they told her it was arthritis. She feels she is very swollen all over. [place] given and helped a little bit. Last edited by PAUL Boyle on 02/16/2025 4:48 PM. Subjective Patient ID: Camila Archibald is a 49 y.o. female who presents for diabetes. Camila is present today for follow up diabetes. Denies foot ulcers, tingling/numbness in extremities. Admits a couple of times having some hypglycemic episodes. Does check BS's at home and on average running around 150 -160. Currently on Metformin. Admits has not been good about her diet. Did learn a lot from Mike, but has not been able to see him again due to work schedule. Does have all the tools he gave her though. States didn't have a refrigerator for three weeks. So that messed up her diet for a while. Is starting to get back on track though. Regarding her right knee pain, no known injury. C/o right lower leg swelling. Swelling started in the back of her knee. When she was getting the x-rays done, something popped in her knee and it made her cry. Tried Meloxicam that she had for her left knee and it didn't touch her right knee pain. States she has felt puffy lately in her stomach and face and right lower leg. Current Outpatient Medications on File Prior to Visit Medication Sig Dispense Refill Azelastine HCl 137 MCG/SPRAY solution Administer 1 spray into affected nostril(s) in the morning and 1 spray before bedtime. Do all this for 14 days. 30 mL 0 Blood Glucose Monitoring Suppl (Blood Glucose Monitor System) w/Device kit 1 each Daily 1 kit 0 citalopram (CeleXA) 40 MG tablet Take 1 tablet (40 mg) by mouth Daily 90 tablet 3 Glucose Blood (Blood Glucose Test) strip 1 each by In Vitro route Daily 100 strip 3 [] ketorolac (Toradol) 10 MG tablet Take 1 tablet (10 mg) by mouth every 6 (six) hours if needed for moderate pain for up to 5 days 20 tablet 0 Lancets 30G misc 1 each Daily 100 each 3 metFORMIN (Glucophage) 500 MG tablet Take 1 tablet (500 mg) by mouth in the morning and 1 tablet (500 mg) in the evening. Take with meals. 30 tablet 0 [DISCONTINUED] cetirizine (ZyrTEC) 10 MG tablet Take 1 tablet (10 mg) by mouth Daily 30 tablet 0 [DISCONTINUED] fluticasone (Flonase) 50 MCG/ACT nasal spray Administer 2 sprays into each nostril Daily as needed for rhinitis Shake gently. Before first use, prime pump. After use, clean tip and replace cap. 16 g 0 No current facility-administered medications on file prior to visit. I have reviewed and reconciled the history and medication list with the patient today. Allergies Allergen Reactions Latex Other Reaction(s): Unknown Semaglutide GI intolerance Social History Tobacco Use Smoking status: Never Smokeless tobacco: Never Vaping Use Vaping status: Never Used Substance Use Topics Alcohol use: Yes Comment: socially. caffeine intake: soda/pop 3-4 cans a day. Drug use: Never Family History Problem Relation Name Age of Onset Thyroid disease Mother Hyperlipidemia Mother Heart failure Father Hypertension Father Polycystic ovary syndrome Sister No Known Problems Son Past Medical History: Diagnosis Date Acute anxiety Depression (CMS/HCC) Internal derangement of left knee 07/08/2024 Leukocytosis 07/08/2024 PCOS (polycystic ovarian syndrome) Sinusitis 07/08/2024 Past Surgical History: Procedure Laterality Date CHOLECYSTECTOMY HAND SURGERY KNEE SURGERY Left 12/2021 LT KNEE [address] PER DR BARROSO TRIGGER FINGER RELEASE Left 09/16/2021 Visit Vitals BP 130/82 Pulse 86 Resp 16 Ht 5' 4 Wt 288 lb 3.2 oz SpO2 97% BMI 49.47 kg/m Smoking Status Never BSA 2.43 m Review of Systems Constitutional: Negative for chills, fatigue and fever. Respiratory: Negative for cough, shortness of breath and wheezing. Cardiovascular: Negative for chest pain, palpitations and leg swelling. Gastrointestinal: Negative for abdominal pain, constipation, diarrhea, nausea and vomiting. Musculoskeletal: Positive for arthralgias and gait problem. Skin: Negative for rash. Objective Physical Exam Constitutional: General: She is not in acute distress. Appearance: She is well-developed. She is obese. HENT: Head: Normocephalic and atraumatic. Eyes: General: No scleral icterus. Conjunctiva/sclera: Conjunctivae normal. Cardiovascular: Rate and Rhythm: Normal rate and regular rhythm. Heart sounds: Normal heart sounds. No murmur heard. Pulmonary: Effort: Pulmonary effort is normal. No respiratory distress. Breath sounds: Normal breath sounds. No wheezing, rhonchi or rales. Musculoskeletal: Right knee: Crepitus (Moderate) present. Normal range of motion. Tenderness (posterior joint line) present over the medial joint line. No lateral joint line or patellar tendon tenderness. No LCL laxity, MCL laxity, ACL laxity or PCL laxity. Normal alignment and normal patellar mobility. Instability Tests: Anterior drawer test negative. Posterior drawer test negative. Medial Sherice test negative and lateral Sherice test negative. Skin: General: Skin is warm and dry. Neurological: General: No focal deficit present. Mental Status: She is alert and oriented to person, place, and time. Psychiatric: Mood and Affect: Mood normal. Behavior: Behavior normal. Assessment/Plan Diagnoses and all orders for this visit: Primary osteoarthritis of right knee - predniSONE (Deltasone) 10 MG tablet; Take 1 tablet (10 mg) by mouth 3 (three) times a day for 3 days, THEN 1 tablet (10 mg) 2 (two) times a day for 3 days, THEN 1 tablet (10 mg) Daily for 3 days. Discussed treatment options with pt. No pain relief with Ketorolac, and mild relief with [place]. Degenerative changes and soft tissue swelling seen on x-rays in ER, US was negative for DVT. Possible Alcantara's cyst. Start Prednisone as prescribed. Take with food. Advised may cause temporary elevation of glucose readings. No NSAIDs while on steroid. Advised depending on response to steroid, may need to consider a knee injection. Pt can contact office if needed for a follow up appt regarding her knee pain. Type 2 diabetes mellitus with other specified complication, without long-term current use of insulin ([facility]) Labs from 02/06/2025 reviewed with pt in detail. Advised her HgbA1c did increase from 7.0 to 7.4. She has not been able to stick to a healthy diet lately due to being without a refrigerator recently. Encouraged her to continue to work on getting back into her healthier routine with her diet, and following the guidelines that she and Mike put in place to manage her glucose. Will recheck HgbA1c in 3 months. She can increase the Metformin to 1000 mg in am and 500 mg in pm if needed while on the steroid. Morbid (severe) obesity due to excess calories (CMS/HCC) Encouraged portion control, decrease simple sugars and carbohydrates, gradually increase activity level. Aim for gradual steady weight loss. BMI 45.0-49.9, adult (CMS/HCC) See above. The patient was seen today in follow up of recent Urgent Care and hospital ER visits. All available hospital records/diagnostics were reviewed and discussed with the patient. UC and ER discharge meds were reviewed. Any changes to plan are as noted. Follow up in about 3 months (around 05/19/2025) for Diabetes. documented in this encounter [facility] History of Present illness Narrative 10-07-2024 PAUL Boyle - 10/07/2024 4:30 PM EST Note Date & Type Note Facility 10-07-2024 History of Presen t illness Narrative Images from the original note were not included. Subjective Patient ID: Camila Archibald is a 49 y.o. female who presents for Diabetes and Sinusitis. Diabetes Mellitus Patient presents for follow up of diabetes. Current symptoms include: hyperglycemia. Patient denies foot ulcerations, hypoglycemia , nausea, paresthesia of the feet, polydipsia, polyuria, visual disturbances, and vomiting. Evaluation to date has included: fasting blood sugar, fasting lipid panel, and hemoglobin A1C. Home sugars: BGs range between 150 and 200. Does take her Metformin at least with dinner, occasionally forgets to take it with lunch. Trying to be careful what she eats, but does get discouraged trying to find out what she can eat. Has cut back on chocolate. Trying to avoid deserts. Started eating high protein yogurt. Eats cottage cheese and pickles for a snack sometimes. Sinus Pain Patient complains of congestion, headaches, post nasal drip, sinus pressure, sore throat, and ear pain. Onset of symptoms was 2 weeks ago. Symptoms have been unchanged since that time. Current Outpatient Medications on File Prior to Visit Medication Sig Dispense Refill Blood Glucose Monitoring Suppl (Blood Glucose Monitor System) w/Device kit 1 each Daily 1 kit 0 citalopram (CeleXA) 40 MG tablet Take 1 tablet (40 mg) by mouth Daily 90 tablet 3 Glucose Blood (Blood Glucose Test) strip 1 each by In Vitro route Daily 100 strip 3 Lancets 30G misc 1 each Daily 100 each 3 metFORMIN (Glucophage) 500 MG tablet Take 1 tablet (500 mg) by mouth in the morning and 1 tablet (500 mg) in the evening. Take with meals. 60 tablet 5 Azelastine HCl 137 MCG/SPRAY solution Administer 1 spray into affected nostril(s) in the morning and 1 spray before bedtime. Do all this for 14 days. 30 mL 0 cetirizine (ZyrTEC) 10 MG tablet Take 1 tablet (10 mg) by mouth Daily 30 tablet 0 fluticasone (Flonase) 50 MCG/ACT nasal spray Administer 2 sprays into each nostril Daily as needed for rhinitis Shake gently. Before first use, prime pump. After use, clean tip and replace cap. 16 g 0 No current facility-administered medications on file prior to visit. I have reviewed and reconciled the history and medication list with the patient today. Allergies Allergen Reactions Latex Other Reaction(s): Unknown Semaglutide GI intolerance Social History Tobacco Use Smoking status: Never Smokeless tobacco: Never Vaping Use Vaping status: Never Used Substance Use Topics Alcohol use: Yes Comment: socially. caffeine intake: soda/pop 3-4 cans a day. Drug use: Never Family History Problem Relation Name Age of Onset Thyroid disease Mother Hyperlipidemia Mother Heart failure Father Hypertension Father Polycystic ovary syndrome Sister No Known Problems Son Past Medical History: Diagnosis Date Acute anxiety Depression (CMS/HCC) Internal derangement of left knee 07/08/2024 Leukocytosis 07/08/2024 PCOS (polycystic ovarian syndrome) Sinusitis 07/08/2024 Past Surgical History: Procedure Laterality Date CHOLECYSTECTOMY HAND SURGERY KNEE SURGERY Left 12/2021 LT KNEE SCOPE PER DR XIEANIC TRIGGER FINGER RELEASE Left 09/16/2021 Visit Vitals BP 130/76 Pulse 82 Ht 5' 4 Wt 288 lb SpO2 99% BMI 49.44 kg/m Smoking Status Never BSA 2.43 m Review of Systems Constitutional: Negative for chills, fatigue and fever. HENT: Positive for congestion, ear pain, postnasal drip, rhinorrhea, sinus pressure, sinus pain and sore throat. Respiratory: Negative for cough, shortness of breath and wheezing. Cardiovascular: Negative for chest pain, palpitations and leg swelling. Gastrointestinal: Negative for abdominal pain, constipation, diarrhea, nausea and vomiting. Neurological: Positive for headaches. Objective Physical Exam Constitutional: General: She is not in acute distress. Appearance: She is well-developed. She is obese. Comments: Very pleasant HENT: Head: Normocephalic and atraumatic. Right Ear: Ear canal normal. A middle ear effusion is present. Left Ear: Ear canal normal. A middle ear effusion is present. Nose: Congestion present. Right Turbinates: Swollen. Left Turbinates: Swollen. Right Sinus: Maxillary sinus tenderness present. Left Sinus: Maxillary sinus tenderness present. Mouth/Throat: Mouth: Mucous membranes are moist. Pharynx: Posterior oropharyngeal erythema (moderate) present. Eyes: General: No scleral icterus. Conjunctiva/sclera: Conjunctivae normal. Cardiovascular: Rate and Rhythm: Normal rate and regular rhythm. Heart sounds: Normal heart sounds. No murmur heard. Pulmonary: Effort: Pulmonary effort is normal. No respiratory distress. Breath sounds: Normal breath sounds. No wheezing, rhonchi or rales. Lymphadenopathy: Cervical: Cervical adenopathy (Submandibular) present. Skin: General: Skin is warm and dry. Neurological: General: No focal deficit present. Mental Status: She is alert and oriented to person, place, and time. Psychiatric: Mood and Affect: Mood normal. Behavior: Behavior normal. Follow-Up on 10/07/2024 Component Date Value Ref Range Status Hemoglobin A1C 10/07/2024 7.0 Final Assessment/Plan Diagnoses and all orders for this visit: Type 2 diabetes mellitus with other specified complication, without long-term current use of insulin ([facility]) - POCT Glycated hemoglobin, total Advised pt that her HgbA1c has improved significantly from 8.2 to 7.0 and is now considered controlled. Encouraged her to continue with gradually improving her diet. Will provide her with referral to Diabetic Education to help her learn more about making healthy choices. Did discuss some low glycemic food options to help her get started. Stay hydrated. Encouraged her to set a reminder on her phone to help her with remembering to take her lunch time dosage of Metformin. Will recheck HgbA1c in three months. Encouraged her to reach out sooner with any questions or concerns. Morbid (severe) obesity due to excess calories ([facility]/HCC) Pt has lost 7 pounds since her last appointment. Advised her this is excellent. Encouraged her to continue to aim for gradual, steady weight loss. Acute non-recurrent maxillary sinusitis - amoxicillin-clavulanate (Augmentin) 875-125 MG tablet; Take 1 tablet (875 mg) by mouth in the morning and 1 tablet (875 mg) in the evening. Take with meals. Do all this for 7 days. Start the above as directed. Reviewed potential s/e with patient. Encouraged probiotic while on antibiotic. Increase water intake, get plenty of rest. Can take OTC allergy medication for symptomatic relief. Tylenol prn. Follow up if no improvement in one week. Follow up in about 3 months (around 01/07/2025) for Diabetes. documented in this encounter [facility] Evaluation note Note Date & Type Note Facility Evaluation note Diagnosis Type 2 diabetes mellitus with other specified complication, without long-term current use of insulin ([facility])- Primary Morbid (severe) obesity due to excess calories ([facility]) Acute non-recurrent maxillary sinusitis documented in this encounter [facility] Evaluation note Note Date & Type Note Facility Evaluation note Diagnosis Primary osteoarthritis of right knee- Primary Type 2 diabetes mellitus with other specified complication, without long-term current use of insulin ([facility]) Morbid (severe) obesity due to excess calories ([facility]/HCC) BMI 45.0-49.9, adult ([facility]) documented in this encounter [facility] Summary Purpose Family History No Family History Records FoundNo Family History Records FoundNo Family History Records FoundNo Family History Records Found Advance Directives No Advanced Directives Records FoundNo Advanced Directives Records FoundNo Advanced Directives Records FoundNo Advanced Directives Records Found Additional Source Comments INFORMATION SOURCE (unrecogn ized section and content) DATE CREATED AUTHOR 10/03/2021 [facility] DATE CREATED AUTHOR AUTHOR'S ORGANIZ ATION 08/14/2023 [facility] DATE CREATED AUTHOR AUTHOR'S ORGANIZ ATION 02/11/2025 [facility] DATE CREATED AUTHOR AUTHOR'S ORGANIZ ATION 02/17/2025 [facility] EPIC Reason for Visit (unrecogniz ed section and content) Reason Comments Diabetes Sinusitis Reason Comments Knee Pain States she went to [facility] on 02/06/25 for right knee pain and they though it was bursa, they rx'd Toradol and it didn't help so then went to [facility] ER 02/11/25 and they diagnosed her with knee pain, they did x-rays, and US, they told her it was arthritis. She feels she is very swollen all over. [place] given and helped a little bit. 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 This clinical summary was aggregated from multiple sources. Caution should be exercised in using it in the provision of clinical care. This summary normalizes information from multiple sources, and as a consequence, information in this document may materially change the coding, format and clinical context of patient data. In addition, data may be omitted in some cases. CLINICAL DECISIONS SHOULD BE BASED ON THE PRIMARY CLINICAL RECORDS. [employer] provides no warranty or guarantee of the accuracy or completeness of information in this document.
[2025-02-28 11:11] LABS: Basophils Absolute Auto 0.1 10^3/uL (0.0-0.1); Basophils Percent Auto 0.6 % (0.2-2.0); Eosinophils Absolute Auto 0.2 10^3/uL (0.0-0.7); Eosinophils Percent Auto 1.9 % (0.9-7.0); Hematocrit 41.1 % (36.0-48.0); Hemoglobin 13.9 g/dL (12.0-16.0); Immature Granulocytes Abs Auto 0.07 10^3/uL (0.00-0.03); Immature Granulocytes Pct Auto 0.6 % (0.0-0.5); Lymphocytes Absolute Auto 2.4 10^3/uL (1.2-3.8); Mean Corpuscular HGB Conc 33.8 g/dL (29.9-35.2); Mean Corpuscular Hemoglobin 30.2 pg (26.7-34.0); Mean Corpuscular Volume 89.2 fL (81.0-99.0); Mean Platelet Volume 8.2 fL (9.5-13.5); Monocytes Absolute Auto 0.8 10^3/uL (0.3-0.8); Monocytes Percent Auto 6.1 % (1.7-12.0); Neutrophils Percent Auto 71.8 % (43.0-75.0); Platelet Count 406 10^3/uL (150-450); Red Blood Count 4.61 10^6/uL (4.20-5.40); Red Cell Distribution Width 13.3 % (11.0-15.0); White Blood Count 12.6 10^3/uL (4.0-11.0)
[2025-02-28 11:12] LABS: Bilirubin Urine NEGATIVE (NEGATIVE); Blood Urine NEGATIVE (NEGATIVE); Clarity Urine CLEAR (CLEAR); Color Urine YELLOW (YELLOW); Glucose Urine UA NEGATIVE (NEGATIVE); Ketones Urine NEGATIVE (NEGATIVE); Leukocyte Esterase Urine NEGATIVE (NEGATIVE); Nitrite Urine NEGATIVE (NEGATIVE); Protein Urine NEGATIVE (NEG/TRACE); Specific Gravity Urine >=1.030 (1.005-1.025); Urobilinogen Urine 0.2 EU/dL (0.2-1.0)
[2025-02-28 11:20] LABS: Urine Microscopic Indicated NO
[2025-02-28 11:32] LABS: Alanine Aminotransferase 18 U/L (14-59); Albumin Globulin Ratio 0.7; Albumin Level 2.8 g/dL (3.4-5.0); Alkaline Phosphatase 72 U/L (46-116); Anion Gap 11.3; Aspartate Amino Transferase 12 U/L (15-37); BUN Creatinine Ratio 16.4; Bilirubin Total 0.6 mg/dL (0.2-1.0); Calcium 8.5 mg/dL (8.5-10.1); Carbon Dioxide 23.8 mmol/L (21.0-32.0); Chloride 103 mmol/L (98-107); Estimated GFR (African America >60 (>=60 mL/min/1.73m^2); Estimated GFR (Non-African Ame >60 (>=60 mL/min/1.73m^2); Globulin 3.9 g/dL; Glucose 148 mg/dL (74-106); Potassium 4.1 mmol/L (3.5-5.1); Sodium 134 mmol/L (136-145); Total Protein 6.7 g/dL (6.4-8.2); Troponin I High Sensitivity <4.0 pg/mL (4.0-51.3)
--- NOTE | 2025-02-28 12:20 | ED.ABDPAIN1 ---
HPI - Abdominal Pain General Chief Complaint: Abdominal Pain Stated Complaint: ABDOMINAL PAIN Time Seen by Provider: 02/28/25 10:39 Source: patient Mode of arrival: ambulance Limitations: no limitations History of Present Illness HPI narrative: The patient is coming to us by the EMS after she woke up this morning with no complaint and 1 hour into the complaint she started having some suprapubic pain, the pain was associated with cramping and she had a 1 bowel movement when she is having that she feels that she is sweating and nauseous, the patient presented to us by the EMS after she did not get any medication she is feeling much better and she had no complaint at the moment She mentioned that the pain was severe 10 out of 10 associated with no nausea but severe pain Related Data Previous Rx's ?Medication ?Instructions ?Recorded hydrocodone 5 mg-acetaminophen 325 1 tab PO Q8H PRN pain 4 days #12 02/11/25 mg tablet tabs Allergies Allergy/AdvReac Type Severity Reaction Status Date / Time No Known Drug Allergies Allergy Verified 02/11/25 17:56 Review of Systems ROS Status of ROS 10 or more systems reviewed and unremarkable except as noted in history and below PFSH PFSH Social History Little interest or pleasure in doing things: not at all Feeling down, depressed, or hopeless: not at all Exam Narrative Exam Narrative: Nurses notes and vital signs reviewed and patient is not hypoxic. General: Well-appearing and in no apparent distress. Skin: Warm, dry, no pallor noted. No rash. Head: Normocephalic, atraumatic. Neck: Supple, non-tender. Cardiovascular: Regular Rate and Rhythm without murmur, gallop or rub. Respiratory: No accessory muscle use or respiratory distress. Lungs are clear to auscultation, no wheezing, rales or rhonchi Chest Wall: no tenderness Back: No midline thoracic or lumbar vertebral tenderness. No CVA tenderness Musculoskeletal: normal ROM, no calf or popliteal tenderness, no lower extremity edema/swelling GI: Abdomen is soft, non-distended. Normal bowel sounds. No masses appreciated. Patient is morbidly obese hard to examine the abdomen there is suprapubic discomfort subjectively Neurological: A&O x4. No cranial nerve dysfunction observed. Constitutional Vital Signs, click to edit/add: Last Vital Signs Temp 98.5 F 02/28/25 10:27 Pulse 74 02/28/25 12:25 Resp 18 02/28/25 12:25 BP 137/86 02/28/25 10:27 Pulse Ox 99 02/28/25 12:25 O2 Del Method Room Air 02/28/25 12:25 Course Vital Signs Vital signs: Vital Signs Temperature 98.5 F 02/28/25 10:27 Pulse Rate 85 02/28/25 10:27 Respiratory Rate 18 02/28/25 10:27 Blood Pressure 137/86 02/28/25 10:27 Pulse Oximetry 98 02/28/25 10:27 Oxygen Delivery Method Room Air 02/28/25 10:27 Temperature 98.5 F 02/28/25 10:27 Pulse Rate 74 02/28/25 12:25 Respiratory Rate 18 02/28/25 12:25 Blood Pressure 137/86 02/28/25 10:27 Pulse Oximetry 99 02/28/25 12:25 Oxygen Delivery Method Room Air 02/28/25 12:25 MDM - Abdominal Pain MDM Narrative Medical decision making narrative: The patient EKG showing sinus rhythm with a heart rate of [address] elevation or depression CBC shows white blood cell of 12 there is no source of infection Chemistry was within normal and the patient CAT scan without contrast showed no acute pathology as well The patient presentation could be secondary to vasovagal after she had a episode of diarrhea She was just continue supportive care at home Patient will monitor her symptoms case of any worsening she will come back to the ER The patient is to follow up with primary care physician in next 2-3 days or to return to the emergency department should any of the signs or symptoms worsen or new symptoms develop. The patient agrees with the following Diagnosis and Treatment plan and the patient will be discharged home. Lab Data Labs: Lab Results 02/28/25 02/28/25 Range/Units 11:00 11:02 WBC 12.6 H (4.0-11.0) 10^3/uL RBC 4.61 (4.20-5.40) 10^6/uL Hgb 13.9 (12.0-16.0) g/dL Hct 41.1 (36.0-48.0) % MCV 89.2 (81.0-99.0) fL MCH 30.2 (26.7-34.0) pg MCHC 33.8 (29.9-35.2) g/dL RDW 13.3 (11.0-15.0) % Plt Count 406 (150-450) 10^3/uL MPV 8.2 L (9.5-13.5) fL Neut % (Auto) 71.8 (43.0-75.0) % Lymph % (Auto) 19.0 L (20.5-60.0) % [place] % (Auto) 6.1 (1.7-12.0) % Eos % (Auto) 1.9 (0.9-7.0) % Baso % (Auto) 0.6 (0.2-2.0) % Neut # (Auto) 9.0 H (1.4-6.5) 10^3/uL Lymph # (Auto) 2.4 (1.2-3.8) 10^3/uL Mcdowell # (Auto) 0.8 (0.3-0.8) 10^3/uL Eos # (Auto) 0.2 (0.0-0.7) 10^3/uL Baso # (Auto) 0.1 (0.0-0.1) 10^3/uL Abs Immat Gran (auto) 0.07 H (0.00-0.03) 10^3/uL Imm/Tot Granulo (auto) 0.6 H (0.0-0.5) % Sodium 134 L (136-145) mmol/L Potassium 4.1 (3.5-5.1) mmol/L Chloride 103 (98-107) mmol/L Carbon Dioxide 23.8 (21.0-32.0) mmol/L Anion Gap 11.3 BUN 12.0 (7.0-18.0) mg/dL Creatinine 0.73 (0.55-1.02) mg/dL Est GFR ( Amer) >60 (>=60 mL/min/1.73m^2) Est GFR (Non-Af Amer) >60 (>=60 mL/min/1.73m^2) BUN/Creatinine Ratio 16.4 Glucose 148 H (74-106) mg/dL Calcium 8.5 (8.5-10.1) mg/dL Total Bilirubin 0.6 (0.2-1.0) mg/dL AST 12 L (15-37) U/L ALT 18 (14-59) U/L Alkaline Phosphatase 72 (46-116) U/L Troponin I High Sens <4.0 L (4.0-51.3) pg/mL Total Protein 6.7 (6.4-8.2) g/dL Albumin 2.8 L (3.4-5.0) g/dL Globulin 3.9 g/dL Albumin/Globulin Ratio 0.7 Urine Color Yellow (YELLOW) Urine Clarity Clear (CLEAR) Urine pH 6.0 (5.0-9.0) Ur Specific [place] >=1.030 A (1.005-1.025) Urine Protein Negative (NEG/TRACE) mg/dL Urine Glucose (UA) Negative (NEGATIVE) mg/dL Urine Ketones Negative (NEGATIVE) mg/dL Urine Occult Blood Negative (NEGATIVE) Urine Nitrite Negative (NEGATIVE) Urine Bilirubin Negative (NEGATIVE) Urine Urobilinogen 0.2 (0.2-1.0) EU/dL Ur Leukocyte Esterase Negative (NEGATIVE) Discharge Plan Discharge Chief Complaint: Abdominal Pain Clinical Impression: Gastroenteritis, Abdominal pain Patient Disposition: Home, Self-Care Time of Disposition Decision: 12:21 Condition: Good Prescriptions / Home Meds: No Action hydrocodone-acetaminophen 5-325 mg tablet 1 tab PO Q8H PRN (Reason: pain) 4 Days Qty: 12 0RF Print Language: Hebrew Instructions: Abdominal Pain (ED) Referrals: CHRIS BOWEN [Primary Care Provider] - 1 week Discharge Date/Time: 02/28/25 12:26
[2025-02-28 12:25] VITALS: PULSE 74; O2SAT 99
== END 2025-02-28 12:26 | disposition home or self-care (01) ==
PROVIDERS: Emergency Provider Emergency Medicine; PCP Internal Medicine
DX: K52.9 Noninfective gastroenteritis and colitis, unspecified (principal); R10.30 Lower abdominal pain, unspecified; Z97.5 Presence of (intrauterine) contraceptive device; E66.01 Morbid (severe) obesity due to excess calories
CPT/HCPCS: 36415; 74176; 80053; 81003; 84484; 85025; 93005; 99285

== ENCOUNTER 2025-04-03 06:47 | Outpatient (OUT) | payer OTHER, SELFPAY ==
--- NOTE | 2025-04-03 06:52 | MR_ITS ---
[address] [address] Patient Name: CAMILA ARCHIBALD MRN: [id number] date: 1975 Sex: F Assigned Patient Location: MRI Current Patient Location: MRI Accession/Order Number: [id number] Exam Date: 04/03/2025 09:53 Report Date: 04/03/2025 10:00 At the request of: KATLYN ROBERTS Procedure: MR knee RT wo con EXAMINATION: MRI OF THE RIGHT KNEE CLINICAL DATA: Medial and posterior right knee pain. COMPARISON: Right knee series 02/11/2025 TECHNIQUE: Multiecho, multiplanar imaging was performed with use of an extremity coil. No contrast was administered. FINDINGS: Joint:Small joint effusion. There appears to be loss of the articular cartilage of the patella with bone marrow edema involving the patella suggestive of chondromalacia. Joint spurring is noted. There is bone marrow edema involving the medial condyle of the femur as well as the medial tibial plateau with associated articular cartilage defect involving the medial condyle measuring approximately 4 mm. Mild joint spurring. Soft tissues: Mild soft tissue swelling. No fluid collection. Quadriceps/Patellar tendon/retinaculum: Normal Muscles: Normal ACL:Normal PCL:Normal Medial Meniscus:Tear posterior horn. Lateral Meniscus:Normal MCL:Normal LCL complex: Normal MR/MR knee RT wo con IMPRESSION: 1. SMALL JOINT EFFUSION. 2. BONE MARROW EDEMA INVOLVING THE MEDIAL CONDYLE OF THE FEMUR WELL THE MEDIAL ASPECT OF THE TIBIAL PLATEAU WITH ASSOCIATED ARTICULAR CARTILAGE DEFECT INVOLVING THE MEDIAL CONDYLE MEASURING 4 MM. THERE IS ALSO ASSOCIATED TEAR INVOLVING THE POSTERIOR HORN OF THE MEDIAL MENISCUS. 3. CHONDROMALACIA OF THE PATELLA. 4. MILD JOINT SPURRING.. Impression dictated by: Ruy Schuster Jr., D.O. 04/03/2025 10:00 AM Dictation Location: [place] [address] Electronically authenticated by: [id number] Y Date: 04/03/2025 10:00
== END 2025-04-03 06:48 | disposition home or self-care (01) ==
LOC: MRI 06:47
PROVIDERS: PCP Internal Medicine; Visit Provider Physician Assistant
DX: M25.561 Pain in right knee (principal); M17.11 Unilateral primary osteoarthritis, right knee; M23.91 Unspecified internal derangement of right knee; M25.461 Effusion, right knee; S83.241A Other tear of medial meniscus, current injury, right knee, initial encounter; M22.41 Chondromalacia patellae, right knee
CPT/HCPCS: 73721

== ENCOUNTER 2025-09-15 18:16 | Outpatient (REF) | payer OTHER, SELFPAY ==
--- OUTSIDE RECORDS SUMMARY | 2025-09-15 18:19 | XMS_ITS | CCD ---
Author Organization [facility] Care Team Providers Care Supervisor Dry Paste Name Role Phone MIGUEL CHAIREZ Attending Unavailable MIGUEL CHAIREZ Consulting Unavailable MIGUEL CHAIREZ Admitting Unavailable DR OLAF STERN Primary Care Unavailable TITO SCHWARZ Unavailable PROVIDER, UNKNOWN Attending Unavailable PROVIDER, UNKNOWN Admitting Unavailable LIAT TELLO Referring Unava deana Stern MD, Olaf Kunz Primary Care Provider Adonis Gómez MD Attending Provider Ta HYDROTREATER OPERATOR-CLorraine Primary Care Provider Adonis Gómez II Attending UnavailAdonis Salas II Admitting UnavailLorraine Spivey Primary Care Unavailable JOSE LUTZ Attending Unavailable LORRAINE ROBERTS Attending Unavailable LORRAINE ROBERTS Attending Unavailable RONNIE NIELSEN Attending Unavailable RONNIE NIELSEN Referring Unavailable LORRAINE ROBERTS Attending Unavailable LORRAINE ROBERTS Attending Unavailable MIKE GAMEZ Attending Unavailable JR. SHARPE GEORGE C Attending Unavaila PIEDAD Scott Attending Unavailable LORRAINE ROBERTS Attending Unavailable LORRAINE ROBERTS Referring Unavailable Allergies Allergy ClassificationReported Allergen(s)Allergy TypeDate of OnsetReaction(s) Facility (1 source)LatexDrug allergy (disorder)31-35-5470Fyy [facility] (20 sources)LatexAllergy to bmomgguep70-80-3317[facility] (20 sources)SemaglutidePropensity to adverse ogxwmfmtd06-08-1831VJ intolerance [facility] Medications Current Medications MedicationDrug Class(es)DatesSig (Normalized)Sig (Original)citalopram 20 mg oral tablet (20 sources)Serotonin Reuptake InhibitorStart: 00-63-4019xcnd 1 tablet by mouth once dailycitalopram (CeleXA) 20 MG tablet Indications: Depression with anxiety Take 1 tablet (20 mg) by mouth Daily 08/20/2025 ActiveStart: 79-97-3739ndgo 1 tablet by mouth once dailycitalopram (CeleXA) 20 MG tablet Indications: Depression with anxiety Take 1 tablet (20 mg) by mouth Daily 08/20/2025 Active Start: 07-08-2024 End: 03-85-9138ywfb 1 tablet by mouth once dailycitalopram (CeleXA) 40 MG tablet Indications: Depression with anxiety Take 1 tablet (40 mg) by mouth Daily 90 tablet 3 05/19/2025 08/20/2025 Discontinued (Reorder)lidocaine 0.05 mg/mg medicated patch (7 sources)Antiarrhythmic, Amide Local AnestheticStart: 48-99-3798alekj 1 dose transdermal route once daily as needed for painlidocaine (Lidoderm) 5 % patch APPLY 1 PATCH TOPICALLY TO THE SKIN DAILY NEEDED FOR PAIN. LEAVE ON MOST PAINFUL AREA FOR UP TO 12 HOURS 07/22/2025 ActivemetFORMIN hydrochloride 500 mg oral tablet (20 sources)BiguanideStart: 69-96-0575dpke 1 tablet by mouth in the morning metFORMIN (Glucophage) 500 MG tablet Indications: Type 2 diabetes mellitus with other specified complication, without long-term current use of insulin ([facility]) Take 1 tablet (500 mg) by mouth in the morning and 1 tablet (500 mg) in the evening. Take with meals. 200 tablet 1 02/18/2025 ActiveStart: 87-22-3356yeuo 1 tablet by mouth in the morningmetFORMIN (Glucophage) 500 MG tablet Indications: Type 2 diabetes mellitus with other specified complication, without long-term current use of insulin (CMS/HCC) Take 1 tablet (500 mg) by mouth in themorning and 1 tablet (500 mg) in the evening. Take with meals. 30 tablet 02/04/2025 ActiveStart: 42-91-9409auar 1 tablet by mouth in the morningmetFORMIN (Glucophage) 500 MG tablet Indications: Type 2 diabetes mellitus with other specified complication, without long-term current use of insulin (CMS/HCC) Take 1 tablet (500 mg) by mouth in themorning and 1 tablet (500 mg) in the evening. Take with meals. 60 tablet 5 07/08/2024 Activephentermine hydrochloride 37.5 mg oral tablet (6 sources)Sympathomimetic Amine AnorecticStart: 08-11-2025 End: 53-20-7187poxi 1 tablet by mouth before mealtimephentermine (Adipex-P) 37.5 MG tablet Indications: Encounter for weight management Take 1 tablet (37.5 mg) by mouth in the morning. Take before meals. 30 tablet 08/11/2025 09/10/2025 ActivepredniSONE 10 mg oral tablet (2 sources)Start: 02-16-2025 End: 72-23-3257stqh 1 tablet by mouth three times daily, then take 1 tablet by mouth twice daily, then take 1 tablet by mouth once dailypredniSONE (Deltasone) 10 MG tablet Indications: Primary osteoarthritis of right knee Take 1 tablet(10 mg) by mouth 3 (three) times a day for 3 days, THEN 1 tablet (10 mg) 2 (two) times a day for 3 days, THEN 1 tablet (10 mg) Daily for 3 days. 18 tablet 02/16/2025 02/24/2025 Active Completed/Discontinued Medications MedicationDrug Class(es)DatesSig (Normalized)Sig (Original)amoxicillin 875 mg / clavulanate 125 mg oral tablet (2 sources)Penicillin-class AntibacterialStart: 10-07-2024 End: 56-24-5104famo 1 tablet by mouth in the morningamoxicillin-clavulanate (Augmentin) 875-125 MG tablet Indications: Acute non-recurrent maxillary sin usitis Take 1 tablet (875 mg) by mouth in the morning and 1 tablet (875 mg) in the evening. Take with meals. Do all this for 7 days. 14 tablet 10/07/2024 10/14/2024 Expiredazelastine hydrochloride 0.137 mg/actuat metered dose nasal spray (20 sources)Histamine-1 Receptor AntagonistStart: 07-08-2024 End: 97-42-3769xuea 1 spray(s) nasal route in the morningAzelastine HCl 137 MCG/SPRAY solution Indications: Seasonal allergic rhinitis due to pollen Administer 1 spray into affected nostril(s) in the morning and 1 spray before bedtime. Do all this for 14 days. 30 mL 07/08/2024 08/11/2025 DiscontinuedBlood Glucose Monitoring Suppl (Blood Glucose Monitor System) w/Device kit (20 sources)Start: 07-08-2024 End: 17-64-4628Ylyyk Glucose Monitoring Suppl (Blood Glucose Monitor System) w/Device kit Indications: Type 2 diabetes mellitus with other specified complication, without long-term current use of insulin ([facility]) 1 each Daily 1 kit 07/08/2024 08/11/2025 DiscontinuedStart: 66-03-8370Xosjj Glucose Monitoring Suppl (Blood Glucose Monitor System) w/Device kit Indications: Type 2 diabetes mellitus with other specified complication, without long-term current use of insulin ([facility]) 1 each Daily 1 kit 07/08/2024 ActiveStart: 37-29-4459Wimmh Glucose Monitoring Suppl (Blood Glucose Monitor System) w/Device kit Indications: Type 2 diabetes mellitus with other specified complication, without long-term current use of insulin 1 each Daily 1 kit 07/08/2024 ActiveStart: 50-15-4796Nopdp Glucose Monitoring Suppl (Blood Glucose Monitor System) w/Device kit Indications: Type 2 diabetes mellitus with other specified complication, without long-term current use of insulin ([facility]/HCC) 1 each Daily 1 kit 07/08/2024 Active cetirizine hydrochloride 10 mg oral tablet (6 sources)Histamine-1 Receptor AntagonistStart: 07-08-2024 End: 19-26-0847vhoq 1 tablet by mouth once dailycetirizine (ZyrTEC) 10 MG tablet Indications: Seasonal allergic rhinitis due to pollen Take 1 tablet (10 mg) by mouth Daily 30 tablet 07/08/2024 02/16/2025 Discontinued (Other)fluticasone propionate 0.05 mg/actuat metered dose nasal spray (6 sources)CorticosteroidStart: 02-04-2024 End: 99-82-3549tfnv 2 spray(s) nasal route once daily as needed for rhinitis fluticasone (Flonase) 50 MCG/ACT nasal spray Indications: Acute non-recurrent maxillary sinusitis Administer 2 sprays into each nostril Daily as needed for rhinitis Shake gently. Before first use, prime pump. After use, clean tip and replace cap. 16 g 02/04/2024 02/16/2025 Discontinued (Other)1 ml methylPREDNISolone acetate 40 mg/ml injection (4 sources)CorticosteroidStart: 04-28-2025 End: 21-58-4027xozgrhRYVWXMJcmrhi acetate (DEPO-Medrol) injection 40 mgStart: 04-28-2025 End: 00-24-499172 mg, Intra-articular, Once PRN Procedure, Starting on Sun04/28/25 at 1639, For 1 dose Problems Active Problems Problem ClassificationProblemDateDocumented DateEpisodic/Chronic Administrative/social admission (2 sources)Patient encounter status; Translations: [Persons encountering health services in other specified circumstances]79-60-0905VsepkablArniouz disorders (20 sources)Mixed anxiety and depressive disorder; Translations: [Other specified anxiety disorders]Onset: 662171-99-4381SvgitvqGwbxss (20 sources)Asthma; Translations: [Unspecified asthma, uncomplicated]Onset: 991174-42-8881IerbmprZufehggy mellitus without complication (20 sources)Type 2 diabetes mellitus; Translations: [Type 2 diabetes mellitus without complications]Onset: 07-08-2024 Resolved: 253356-86-8990ToxcdnqClizftcjs of lipid metabolism (20 sources)Raised low density lipoprotein cholesterol; Translations: [Pure hypercholesterolemia, unspecified]Onset: 817208-00-7440KrysnldB Codes: Natural/environment (1 source)Other and unspecified overexertion or strenuous movements or postures, initial encounter; Translations: [OTH AND UNS OVREXRT/STRN MVMT/POS INT]Onset: 11-33-9762EtfsferyLtkcy disorders and dislocations; trauma-related (4 sources)Derangement of right knee; Translations: [Unspecified internal derangement of right knee]79-89-6381DnolyliUlsplkzedqumkh (20 sources)Osteoarthritis of right knee joint; Translations: [Unilateral primary osteoarthritis, right knee]Onset: 689213-57-2649ElfocbdGpjtr connective tissue disease (3 sources)Pain in left leg; Translations: [PAIN IN LEFT LEG]Onset: 10-02-2021 EpisodicOther endocrine disorders (20 sources)Polycystic ovary syndrome; Translations: [Polycystic ovarian syndrome]Onset: 161529-55-0427BbksysiIzhmk nervous system disorders (20 sources)Chronic pain; Translations: [Other chronic pain]Onset: 07-08-2024 Resolved: 416322-31-3917TgwpezdDcuga non-traumatic joint disorders (2 sources)Arthritis of right piac07-55-4346BdowwcyTdkpb non-traumatic joint disorders (9 sources)Pain in right knee; Translations: [Pain in joint, lower leg]Onset: 767542-16-6521RrtyzrsbWqgpu nutritional; endocrine; and metabolic disorders (20 sources)Obesity caused by energy imbalance; Translations: [Morbid (severe) obesity due to excess calories]Onset: 102463-83-1455XwnufzcLrkia screening for suspected conditions (not mental disorders or infectious disease) (3 sources)Encounter for screening mammogram for malignant neoplasm of breast; Translations: [Patient encounter status]Onset: 356229-93-5617YqklpkaiAgluk upper respiratory disease (20 sources)Seasonal allergic rhinitis; Translations: [Other seasonal allergic rhinitis]Onset: 432972-58-7209CleibakEfpxc upper respiratory infections (2 sources)Acute maxillary sinusitis; Translations: [Acute maxillary sinusitis, unspecified]41-33-7775QflqmxydTrjyiwd and strains (1 source)Strain of other specified muscles, fascia and tendons at thigh level, left thigh, initial encounter; Translations: [STRAIN OTH MUSC FASC THIGH LT INIT]Onset: 86-26-0574VynmveuaMbxxovxkzktn (2 sources)Acute tear of medial meniscus of right dskx78-92-0808 Past or Other Problems Problem ClassificationProblemDateDocumented DateEpisodic/ChronicDiseases of white blood cells (20 sources)Leukocytosis; Translations: [Elevated white blood cell count, unspecified]Onset: 07-08-2024 Resolved: 183290-80-0171RwybagdZcphh disorders and dislocations; trauma-related (20 sources)Derangement of left knee; Translations: [Unspecified internal derangement of left knee]Onset: 07-08-2024 Resolved: 505352-60-8874FnnvgsvJiozm disorders and dislocations; trauma-related (20 sources)Acute tear of medial meniscus of right knee; Translations: [Other tear of medial meniscus, current injury, right knee, initial encounter]Onset: 049156-07-1997GdrfxpmjXyujruato of unspecified nature or uncertain behavior (20 sources)Thrombocytosis; Translations: [Thrombocytosis]Onset: 07-08-2024 55-56-6879NahbfyenOmzbu connective tissue disease (20 sources)Muscle pain; Translations: [Myalgia, unspecified site]Onset: 724310-15-8624PjqsmbetZmimu nutritional; endocrine; and metabolic disorders (20 sources)Body mass index 40+ - severely obese; Translations: [Body mass index (BMI) 50.0-59.9, adult]Onset: 07-08-2024 Resolved: 260564-11-5456XobdfhvSmwvj upper respiratory infections (20 sources)Sinusitis; Translations: [Chronic sinusitis, unspecified]Onset: 07-08-2024 Resolved: 224966-27-4826YlvwcxqEdpqfhhcujdf (2 sources)Acute pain of right bllj84-11-5781 Results Test NameValueInterpretationReference RangeFacilityBI MAMMOGRAM SCREENING TOMOSYNTHESIS BILATERALon 20-10-3012TY MAMMOGRAM SCREENING TOMOSYNTHESIS BILATERALThis is a summary report. The complete report is available in the patient's medical record. If you cannot access the medical record, please contact the sending organization for a detailed fax or copy. Examination: BI MAMMOGRAM SCREENING TOMOSYNTHESIS BILATERAL Clinical History: screening f Technique: Screening digital mammography study of both breasts was performed with 2-D and 3-D tomosynthesis imaging. Study was compared to the prior exam dated 08/19/2024. Findings: There is no evidence of interval dominant spiculated mass, grouped microcalcifications, or skin thickening which would be suggestive of malignancy. Mild scattered benign-appearing calcifications are seen on the left. Axillary lymph node is noted on the left which appears grossly unremarkable. Suggestion of slightly visualized axillary lymph nodeon the right which appears grossly unremarkable. IMPRESSION: Impression: No specific evidence of malignancy seen in either breast. BIRADS 2 - Benign Findings DENSITY: There are scattered areas of fibroglandular density. FOLLOW-UP: Routine Screening Mammogram Board Certified Radiologists. Accredited by the ACR and FDA. MAMMOGRAPHY IS VERY IMPORTANT TO YOUR HEALTH. THE [employer] GUIDELINES RECOMMEND THATWOMEN 40 YEARS OF AGE AND OLDER SHOULD HAVE A MAMMOGRAM EVERY YEAR. A REMINDER LETTER WILL BE SENT AT THE APPROPRIATE TIME. ELECTRONICALLY SIGNED BY: Nick Bernard M.D.NormalNot AvailableLaboratory - Hematology and Cell countson 62-67-8906CkV6x (Bld) [Mass fraction]6.8 %[facility] HealthcareNo Panel Informationon 22-96-3214Dwprubgnreyihb and review of laboratory resultsAbnormalNOSSM Health Care HealthcareX-ray reportOrdered By: Ruy Schuster on 33-01-3268Dwcdc reportFIRUNIVERSITY HOSPITALS [facility] [address] [place] [address] XRay Report Signed Patient: Camila Archibald MR#: [id number] : 1975 Acct:[id number] Age/Sex: 50 / F ADM Date: 5 [place] [facility] [place] Type: [facility] Attending Dr: Adonis Gómez II, MD Copies to: Adonis Gómez MD~ Ordering Provider: Adonis Gómez MD Date of Service: 07/22/25 XR/XR pelvis 1-2V: M25.561 - Pain in right knee AP PELVIS: Right knee 4 views CLINICAL HISTORY: Jenny the right knee pain. COMPARISON: None Pelvis demonstrates mild degenerative changes of the hips without acute bony process. Mild degenerative changes are also noted involving the SI joints. Right knee demonstrates mild degenerative change with medial weightbearing jointspace narrowing. Noacute bony process. XR/XR pelvis 1-2V IMPRESSION: MILD DEGENERATIVE CHANGES OF THE HIPS AND RIGHT KNEE WITHOUT ACUTE BONY PROCESS. Impression dictated by: Ruy Schuster Jr., D.O. 07/22/2025 11:39 AM Dictation Location: [place] [address] Transcribed By: [facility] 07/22/25 1139 Dictated By: Ruy Schuster Jr, DO 07/22/25 1137 Signed By: 07/22/25 1139 XR pelvis 1-2Von 45-88-7882MM pelvis 1-2V [facility] [address] [place] [address] XRay Report Signed Patient: Camila Archibald MR#: [id number] : 1975 Acct:[id number] Age/Sex: 50 / F ADM Date: 07/22/25 Loc: [facility] Room: Type: [facility] Attending Dr: Adonis Gómez II, MD Copies to: Adonis Gómez MD Ordering Provider: Adonis Gómez MD Date of Service: 07/22/25 XR/XR knee RT 4V*: M25.561 - Pain in right knee ([id number]) XR/XR pelvis 1-2V: M25.561 - Pain in right knee AP PELVIS: Right knee 4 views CLINICAL HISTORY: May the right knee pain. COMPARISON: None Pelvis demonstrates mild degenerative changes of the hips without acute bony process. Mild degenerative changes are also noted involving the SI joints. Right knee demonstrates mild degenerative change with medial weightbearing joint space narrowing. No acute bony process. XR/XR pelvis 1-2V IMPRESSION: MILD DEGENERATIVE CHANGES OF THE HIPS AND RIGHT KNEE WITHOUT ACUTE BONY PROCESS. Impression dictated by: Ruy Schuster Jr., DIvyOIvy 07/22/2025 11:39 AM Dictation Location: [place] [address] Transcribed By: [facility] 07/22/25 1139 Dictated By: Ruy Schuster Jr, DO 07/22/25 1137 Signed By: 07/22/25 1139[facility] Physician GroupLaboratory - Hematology and Cell countson 06-29-7929EgW9y (Bld) [Mass fraction]7.3 %[facility] HOSPITALCareParentNo Panel Informationon 20-46-6231Bmmkmpkirgojdv and review of laboratory resultsAbnormal [facility] Frameri HealthcareNo Panel Informationon 59-27-9424PnyvsdzPAUL Wheeler 04/28/2025 4:56 PM L Inj/Asp: R knee on 04/28/2025 4:39 PM Indications: pain Details: 22 G needle, anterolateral approach Medications: 40 mg methylPREDNISolone acetate 40 MG/ML Outcome: tolerated well, no immediate complications E UTILIZING ASEPTIC TECHNIQUE PT GIVEN INJECTION IN RIGHT KNEE, NEUROVASC INTACT S/P INJ, TOLERATED WELL Procedure, treatment alternatives, risks and benefits explained, specific risks discussed. Consent was given by the patient. Patient was prepped and draped in the usual sterile fashion. [facility] - bilateral 2 Viewson 39-46-5473Vilrqvu Result: AP Weight bearing and Lueders view No acute fracture or dislocation Symmetric medial joint space narrowing. Subchondral sclerosis and flattening of medial joint line weight bearing surface Lateral tracking patella with near bone on bone patella-femoral articulation. Impression: No acute bony process right knee , mild tricompartmental arthritic changes, greatest being patella-femoralAtrium Health [facility] Center Radiology Study observation (narrative)[facility] KNEE RT WO CONon 53-43[place] [address] Magnetic Resonance Report Signed Patient: CAMILA ARCHIBALD MR#: [id number] : 1975 Acct:[id number] Age/Sex: 49 / F ADM Date: 04/03/25 Loc: MRI Attending Dr: LORRAINE ROBERTS Ordering Physician: LORRAINE ROBERTS Date of Service: 04/03/25 Procedure(s): MR knee RT wo con Accession Number(s): [id number] cc: OLAF STERN ; LORRAINE ROBERTS [place] [address] Patient Name: CAMILA ARCHIBALD MRN: [id number] date: 1975 Sex: F Assigned Patient Location: MRI Current Patient Location: MRI Accession/Order Number: [id number] Exam Date: 04/03/2025 09:53 Report Date: 04/03/2025 10:00 At the request of: LORRAINE ROBERTS Procedure: MR knee RT wo con EXAMINATION: MRI OF THE RIGHT KNEE CLINICAL DATA: Medial and posterior right knee pain. COMPARISON: Right knee series 02/11/2025 TECHNIQUE: Multiecho, multiplanar imaging was performed with use of an extremity coil. No contrast was administered. FINDINGS: Joint:Small joint effusion. There appears to be loss of the articular cartilage of the patella with bone marrow edema involving the patella suggestive of chondromalacia. Joint spurring is noted. There is bone marrow edema involving the medial condyle of the femur as well as the medial tibial plateau with associated articular cartilage defect involving the medial condyle measuring approximately 4 mm. Mild joint spurring. Soft tissues: Mild soft tissue swelling. No fluid collection. Quadriceps/Patellar tendon/retinaculum: Normal Muscles: Normal ACL:Normal PCL:Normal Medial Meniscus:Tear posterior horn. Lateral Meniscus:Normal MCL:Normal LCL complex: Normal MR/MR knee RT wo con IMPRESSION: 1. SMALL JOINT EFFUSION. 2. BONE MARROW EDEMA INVOLVING THE MEDIAL CONDYLE OF THE FEMUR WELL THE MEDIAL ASPECT OF THE TIBIAL PLATEAU WITH ASSOCIATED ARTICULAR CARTILAGE DEFECT INVOLVING THE MEDIAL CONDYLE MEASURING 4 MM. THERE IS ALSO ASSOCIATED TEAR INVOLVING THE POSTERIOR HORN OF THE MEDIAL MENISCUS. 3. CHONDROMALACIA OF THE PATELLA. 4. MILD JOINT SPURRING.. Impression dictated by: Ruy Schuster Jr., D.OIvy 04/03/2025 10:00 AM Dictation Location: [place] [address] Electronically authenticated by: [id number] Y Date: 04/03/2025 10:00 Dictated By: Ruy Schuster M.D. Signed By: 04/03/25 1003 DD/ 1000 TD/TT: Curriculum And Assessment Director:TBHRadiology, Radiologist, - 04/03/2025 [facility] [place] [id number] Magnetic Resonance Report Signed Patient: CAMILA ARCHIBALD MR#: [id number] : 1975 Acct:[id number] Age/Sex: 49 / F ADM Date: 04/03/25 Loc: MRI Attending Dr: LORRAINE ROBERTS Ordering Physician: LORRAINE ROBERTS Date of Service: 04/03/25 Procedure(s): MR knee RT wo con Accession Number(s): [id number] cc: OLAF STERN ; LORRAINE ROBERTS [address] [address] Patient Name: CAMILA ARCHIBALD MRN: [id number] date: 1975 Sex: F Assigned Patient Location: MRI Current Patient Location: MRI Accession/Order Number: [id number] Exam Date: 04/03/2025 09:53 Report Date: 04/03/2025 10:00 At the request of: LORRAINE ROBERTS Procedure: MR knee RT wo con EXAMINATION: MRI OF THE RIGHT KNEE CLINICAL DATA: Medial and posterior right knee pain. COMPARISON: Right knee series 02/11/2025 TECHNIQUE: Multiecho, multiplanar imaging was performed with use of an extremity coil. No contrast was administered. FINDINGS: Joint:Small joint effusion. There appears to be loss of the articular cartilage of the patella with bone marrow edema involving the patella suggestive of chondromalacia. Joint spurring is noted. There is bone marrow edema involving the medial condyle of the femur as well as the medial tibial plateau with associated articular cartilage defect involving the medial condyle measuring approximately 4 mm. Mild joint spurring. Soft tissues: Mild soft tissue swelling. No fluid collection. Quadriceps/Patellar tendon/retinaculum: Normal Muscles: Normal ACL:Normal PCL:Normal Medial Meniscus:Tear posterior horn. Lateral Meniscus:Normal MCL:Normal LCL complex: Normal MR/MR knee RT wo con IMPRESSION: 1. SMALL JOINT EFFUSION. 2. BONE MARROW EDEMA INVOLVING THE MEDIAL CONDYLE OF THE FEMUR WELL THE MEDIAL ASPECT OF THE TIBIAL PLATEAU WITH ASSOCIATED ARTICULAR CARTILAGE DEFECT INVOLVING THE MEDIAL CONDYLE MEASURING 4 MM. THERE IS ALSO ASSOCIATED TEAR INVOLVING THE POSTERIOR HORN OF THE MEDIAL MENISCUS. 3. CHONDROMALACIA OF THE PATELLA. 4. MILD JOINT SPURRING.. Impression dictated by: Ruy Schuster Jr., D.O. 04/03/2025 10:00 AM Dictation Location: [place] [address] Electronically authenticated by: [id number] Y Date: 04/03/2025 10:00 Dictated By: Ruy Schuster M.D. Signed By: 04/03/25 1003 DD/ 1000 TD/TT: Curriculum And Assessment Director: [facility] HOSPITALJimbo HealthcareRadiology Study observation (narrative)[facility] KNEE RT WO CONOrdered By: Radiologist Radiology on 49-85-6047MXJH [employer]NT[employer] Work Phone: aLBUMIN, RANDOM URINE W/CREATININEon 02-09-2025 ALBUMIN, URINE1.5 mg/dLNormalSee Note:[facility] DiagnosticsComment on above:Result Comment: Reference Range: Reference Range Not establishedPerformed By: #### [id number], 496, 7600 #### [facility] [address], [address] [place] [address] Sales Service Representative: Hermelindo Watson MD #### [id number], [id number] #### [facility] [address] [place] [address] Sales Service Representative: Damari SpringeriALBUMIN/CREATININE RATIO, RANDOM URINE5 mg/g creatNormal<30Quest DiagnosticsComment on above:Result Comment: The ADA defines abnormalities in albumin excretion as follows: Albuminuria Category Result (mg/g creatinine) Normal to Mildly increased <30 Moderately increased 30-299 Severely increased > OR = 300 The ADA recommends that at least two of three specimens collected within a 3-6 month period be abnormal before considering a patient to be within a diagnostic category.Performed By: #### 6517, 499, 5330 #### [facility] [address], [address] [place] [address] Sales Service Representative: Hermelindo Watson MD #### [phone], 1759 #### [facility] [address] [place] [address] Sales Service Representative: Damari Carballo FlatiCreatinine (U) [Mass/Vol]273 mg/vMEiryks24-562 Quest DiagnosticsComment on above:Performed By: #### 6517, 493, 6930 #### [facility] [address], [address] [place] [address] Sales Service Representative: Hermelindo Watson MD #### 54907, 1759 #### [facility] [address] [place], [place] [address] Sales Service Representative: Damari SpringeriCBC (H/H, RBC, INDICES, WBC, PLT)on 02-09-2025 Erythrocyte distribution width (RBC) [Ratio]13.7 %Axkfcy60.0-15.0Quest DiagnosticsComment on above:Performed By: #### 6517, 496, 7600 #### [facility] [address], [address] [place] [address] Sales Service Representative: Hermelindo Watson MD #### 21717, 1759 #### [facility] [address] [place] [address] Sales Service Representative: Damari SpringeriHematocrit (Bld) [Volume fraction]42.6 %Normal 35.0-45.0Quest DiagnosticsComment on above:Performed By: #### 6517, 496, 7600 #### [facility] [address], [address] [place] [address] Sales Service Representative: Hermelindo Watson MD #### 61772, 1759 #### [facility] [address] [place] [address] Sales Service Representative: Damari Carballo FlatiHemoglobin (Bld) [Mass/Vol]13.9 g/dLNormal 11.7-15.5Quest DiagnosticsComment on above:Performed By: #### 6517, 496, 7600 #### [facility] [address], [address] [place] [address] Sales Service Representative: Hermelindo Watson MD #### 53570, 1759 #### [facility] [address] [place] [address] Sales Service Representative: Damari SpringeriMCH (RBC) [Entitic mass]29.6 ttWiunvc14.0-33.0 [facility] DiagnosticsComment on above:Performed By: #### 6517, 496, 7600 #### [facility] [address], [address] [place] [address] Sales Service Representative: Hermelindo Watson MD #### 11605, 1759 #### [facility] [address] [place], [place] [address] Sales Service Representative: Damari SpringeriMCHC (RBC) [Mass/Vol]32.6 g/hJIelfhs21.0-36.0 [facility] DiagnosticsComment on above:Result Comment: For adults, a slight decrease in the calculated MCHC value (in the range of 30 to 32 g/dL) is most likely not clinically significant; however, it should be interpreted with caution in correlation with other red cell parameters and the patient's clinical condition.Performed By: #### 6517, 496, 7600 #### [facility] [address], [address] [place] [address] Sales Service Representative: Hermelindo Watson MD #### 63481, 1759 #### [facility]-[address] Sales Service Representative: Damari SpringeriMCV (RBC) [Entitic vol]90.8 yYPjepgi19.0-100.0 Quest DiagnosticsComment on above:Performed By: #### 6517, 496, 7600 #### [facility] [address], [address] [place] [address] Sales Service Representative: Hermelindo Watson MD #### 84094, 1759 #### [facility] [address] Sales Service Representative: Damari SpringeriPlatelet mean volume (Bld) [Entitic vol]8.5 fL Normal7.5-12.5Quest DiagnosticsComment on above:Performed By: #### 6517, 496, 7600 #### [facility] [address], [address] [place] [address] Sales Service Representative: Hermelindo Watson MD #### 91026, 1759 #### [facility] [address] Sales Service Representative: Damari Carballo FlatiPlatelets (Bld) [#/Vol]397 10*3/uLNormal 140-400Quest DiagnosticsComment on above:Performed By: #### 6517, 496, 7600 #### [facility] [address], [address] [place] [address] Sales Service Representative: Hermelindo Watson MD #### 81907, 1759 #### [facility] [address] [place], [place] [address] Sales Service Representative: Damari Carballo FlatiRBC (Bld) [#/Vol]4.69 10*6/uLNormal3.80-5.10 Quest DiagnosticsComment on above:Performed By: #### 6517, 496, 7600 #### [facility] [address], [address] [place] [address] Sales Service Representative: Hermelindo Watson MD #### 88313, 1759 #### [facility] [address] Sales Service Representative: Damari SpringeriWBC (d) [#/Vol]8.0 10*3/uLNormal3.8-10.8 [facility] DiagnosticsComment on above:Performed By: #### 6517, 496, 7600 #### [facility] [address], [address] [place] [address] Sales Service Representative: Hermelindo Watson MD #### 21511, 1759 #### [facility] [address] [place] [address] Sales Service Representative: Damari SpringeriCOMPREHENSIVE METABOLIC PANELon 02-09-2025 Albumin [Mass/Vol]3.7 g/dLNormal3.6-5.1Quest DiagnosticsComment on above: Performed By: #### 6517, 496, 7600 #### [facility] [place] [address] Sales Service Representative: Hermelindo Watson MD #### 89122, 1759 #### [facility] [address] Sales Service Representative: Damari SpringeriAlbumin/Globulin [Mass ratio]1.2 {ratio}Normal 1.0-2.5Quest DiagnosticsComment on above:Performed By: #### 6517, 496, 7600 #### [facility] [place] [address] Sales Service Representative: Hermelindo Watson MD #### 62871, 1759 #### [facility]-[address] Sales Service Representative: Damari SpringeriALP [Catalytic activity/Vol]55 U/PShahfc66-766 [facility] DiagnosticsComment on above:Performed By: #### 6517, 496, 7600 #### [facility] [address], [address] [place] [address] Sales Service Representative: Hermelindo Watson MD #### 35761, 1759 #### [facility] [address] [place] [address] Sales Service Representative: Damari SpringeriALT [Catalytic activity/Vol]20 U/LNormal6-29 [facility] DiagnosticsComment on above:Performed By: #### 6517, 496, 2718 #### [facility] [address], [address] [place] [address] Sales Service Representative: Hermelindo Watson MD #### 09245, 1759 #### [facility] [address] Sales Service Representative: Damari SpringeriAST [Catalytic activity/Vol]23 U/TYnbscd57-46 Quest DiagnosticsComment on above:Performed By: #### 6517, 496, 1380 #### [facility] [place] [address] Sales Service Representative: Hermelindo Watson MD #### 15962, 1759 #### [facility] [address] [place] [address] Sales Service Representative: Damari SpringeriBilirubin [Mass/Vol]0.6 mg/dLNormal0.2-1.2 Quest DiagnosticsComment on above:Performed By: #### 6517, 496, 5160 #### [facility] [address], [address] [place] [address] Sales Service Representative: Hermelindo Watson MD #### 38713, 9742 #### [facility] [address] Sales Service Representative: Damari R FlatiBUN/CREATININE RATIOSEE NOTE:Normal6-22Quest DiagnosticsComment on above:Result Comment: Not Reported: BUN and Creatinine are within reference range.Performed By: #### 6517, 496, 6680 #### [facility] [address], [address] [place] [address] Sales Service Representative: Hermelindo Watson MD #### 16000, 1759 #### [facility] [address] Sales Service Representative: Damari Carballo FlatiCalcium [Mass/Vol]8.8 mg/dLNormal8.6-10.2Quest DiagnosticsComment on above:Performed By: #### 6517, 49, 8320 #### [facility] [address], [address] [place] [address] Sales Service Representative: Hermelindo Watson MD #### 29752, 1759 #### [facility] [address] Sales Service Representative: Damari Carballo FlatiChloride [Moles/Vol]105 mmol/PQfdvxv55-557 [facility] DiagnosticsComment on above:Performed By: #### 6517, 495, 5760 #### [facility] [address], [address] [place] [address] Sales Service Representative: Hermelindo Watson MD #### 40217, 1759 #### [facility] [address] Sales Service Representative: Damari Carballo FlatiCO2 [Moles/Vol]23 mmol/COjltzl04-40Dmvyc DiagnosticsComment on above:Performed By: #### 6517, 499, 7600 #### [facility] [address], [address] [place] [address] Sales Service Representative: Hermelindo Watson MD #### 57518, 1759 #### [facility] [address] Sales Service Representative: Damari Carballo FlatiCreatinine [Mass/Vol]0.70 mg/dLNormal0.50-0.99 [facility] DiagnosticsComment on above:Performed By: #### 6517, 496, 7600 #### [facility] [address], [address] [place] [address] Sales Service Representative: Hermelindo Watson MD #### 89088, 1759 #### [facility]-[address] Sales Service Representative: Damari SpringeriGFR/1.73 sq M.predicted among non-blacks MDRD (S/P/Bld) [Vol rate/Area]107 mL/min/{1.73_m2}Normal> OR = 60[facility] Comment on above:Performed By: #### 6517, 496, 7600 #### [facility] [place] [address] Sales Service Representative: Hermelindo Watson MD #### 41350, 1759 #### [facility]-[address] Sales Service Representative: Damari Carballo FlatiGlobulin (S) [Mass/Vol]3.0 g/dLNormal1.9-3.7 Quest DiagnosticsComment on above:Performed By: #### 6517, 496, 7600 #### [facility] [place] [address] Sales Service Representative: Hermelindo Watson MD #### 13363, 1759 #### [facility]-[address] Sales Service Representative: Damari Carballo FlatiGlucose [Mass/Vol]172 mg/uHUnzk48-73Vvudc DiagnosticsComment on above:Result Comment: Fasting reference interval For someone without known diabetes, a glucose value >125 mg/dL indicates that they may have diabetes and this should be confirmed with a follow-up test.Performed By: #### 6517, 496, 3760 #### [facility] [place] [address] Sales Service Representative: Hermelindo Watson MD #### 39717, 1759 #### [facility] [phone] Sales Service Representative: Damari Carballo FlatiPotassium [Moles/Vol]4.6 mmol/LNormal3.5-5.3 Quest DiagnosticsComment on above:Performed By: #### 6517, 496, 7600 #### [facility] [address], [address] [place] [address] Sales Service Representative: Hermelindo Watson MD #### 70230, 175 #### [facility] [address] Sales Service Representative: Damari Carballo FlatiProtein [Mass/Vol]6.7 g/dLNormal6.1-8.1Quest DiagnosticsComment on above:Performed By: #### 6517, 496, 7600 #### [facility] [address], [address] [place] [address] Sales Service Representative: Hermelindo Watson MD #### 94520, 175 #### [facility] [address] Sales Service Representative: Damari Carballo FlatiSodium [Moles/Vol]136 mmol/JGdurgn262-074Etrik DiagnosticsComment on above:Performed By: #### 6517, 496, 7600 #### [facility] [address], [address] [place] [address] Sales Service Representative: Hermelindo Watson MD #### 94320, 175 #### [facility] [address] [place] [address] Sales Service Representative: Damari SpringeriUrea nitrogen [Mass/Vol]11 mg/dLNormal7-25 [facility] DiagnosticsComment on above:Performed By: #### 6517, 496, 7600 #### [facility] [address], [address] [place] [address] Sales Service Representative: Hermelindo Watson MD #### 53020, 175 #### [facility] [address] [place] [phone] Sales Service Representative: Damari SpringeriHEMOGLOBIN A1con 69-61-0549XTBYJCJRMX A1c7.4 % of total HgbHigh<5.7Quest DiagnosticsComment on above:Result Comment: For someone without known diabetes, a [...] hemoglobin A1c for diagnosis of diabetes for children.Performed By: #### 6517, 494, 3200 #### [facility] [address], [address] [place] [address] Sales Service Representative: Hermelindo Watson MD #### 67525, 1759 #### [facility] [address] [place] [phone] Sales Service Representative: Damari SpringeriLIPID PANEL, STANDARDon 50-22-8862Yyeempqfjwv [Mass/Vol]181 mg/dLNormal<200Quest DiagnosticsComment on above:Order Comment: FASTING:YES FASTING: YESPerformed By: #### 6517, 496, 1400 #### [facility] [address], [address] [place] [address] Sales Service Representative: Hermelindo Watson MD #### 99922, 1759 #### [facility] [address] [place] [phone] Sales Service Representative: Damari SpringeriCholesterol in HDL [Mass/Vol]60 mg/dLNormal> OR = 50Quest DiagnosticsComment on above:Order Comment: FASTING:YES FASTING: YESPerformed By: #### 6517, 496, 9590 #### [facility] [address], [address] [place] [address] Sales Service Representative: Hermelindo Watson MD #### 13820, 1759 #### [facility] [address] [place] [phone] Sales Service Representative: Damari SpringeriCholesterol in LDL [Mass/Vol]104 mg/dLHigh [facility] DiagnosticsComment on above:Order Comment: FASTING:YES FASTING: YESResult Comment: Reference range: <100 Desirable range <100 mg/dL for primary prevention; <70 mg/dL for patients with CHD or diabetic patients with > or = 2 CHD risk factors. LDL-C is now calculated using the Nancy calculation, which is a validated novel method providing better accuracy than the Friedewald equation in the estimation of LDL-C. Jameson SS et al. ALIX. 2013;310(19): 9356-2905 (http://education.Adocia/faq/MLE153)Performed By: #### 6517, 493, 5514 #### [facility] [address], [address] [place] [address] Sales Service Representative: Hermelindo Watson MD #### 87065, 1759 #### [facility] [address] [place] [phone] Sales Service Representative: Damari Teranolesterol.total/Cholesterol in HDL [Mass ratio]3.0 {ratio}Normal<5.0Quest DiagnosticsComment on above:Order Comment: FASTING:YES FASTING: YESPerformed By: #### 6517, 516, 1230 #### [facility] [address], [address] [place], [place] [address] Sales Service Representative: Hermelindo Watson MD #### 32784, 1759 #### [facility] [address] [place] [phone] Sales Service Representative: Damari SpringeriNON HDL TPNNVNQHKJJ646 mg/dL (calc)Normal<130 [facility] DiagnosticsComment on above:Order Comment: FASTING:YES FASTING: YESResult Comment: For patients with diabetes plus 1 major ASCVD risk factor, treating to a non-HDL-C goal of <100 mg/dL (LDL-C of <70 mg/dL) is considered a therapeutic option.Performed By: #### 6517, 496, 7600 #### [facility] [address] , [address] [place] [phone] Sales Service Representative: Hermelindo Watson MD #### 97732, 1759 #### [facility] [address] [place] [address] Sales Service Representative: Damari SpringeriTriglyceride [Mass/Vol]82 mg/dLNormal<150Quest DiagnosticsComment on above:Order Comment: FASTING:YES FASTING: YESPerformed By: #### 6517, 496, 7600 #### [facility] [address] [facility], [address] [place] [address] Sales Service Representative: Hermelindo Watson MD #### 45425, 1759 #### [facility] [address] [place] [phone] Sales Service Representative: Damari SpringeriLaboratory - Hematology and Cell countson 08-91-6811DfT0z (Bld) [Mass fraction]7 %[facility] HealthcareNo Panel Informationon 05-96-1737GOSY HealthcareMG MAMMO SCREEN BILAT KATHY W/CADon 98-15-3887KQ MAMMO SCREEN BILAT KATHY W/CADEXAM: BILATERAL SCREENING MAMMOGRAM W/TOMOSYNTHESIS AND CAD CLINICAL [...] the Tyrer-Cuzick/ALEISHA model) NCI Lifetime Risk Score: 9.3%NormalThe FishidyroHealth SystemXR HIP LT 2 3V W PELVIS on 63-15-6305ZY HIP LT 2 3V W PELVISEXAM: XR HIP LT 2 3V W PELVIS, [...] Electronically authenticated by: TITO SCHWARZ Date: 2021-10-02 03:13[facility] Vital Signs Date TimeVital SignValuePerforming UxhqcnvnlUxmdmiho30-77-6785 08:18-0400Body fyqugq675.6 cmJasonen Hemmer PA Work Phone: [phone] MonettBmwyetvezd63-13-4261 08:18-0400Body mass index (BMI) [Ratio]50.12 kg/p8Qudkz Hemmer PA Work Phone: [phone] FultonJrfnzifhxz16-82-4877 08:18-0400Body xsotiy632.45 kgJasonen Hemmer PA Work Phone: [phone] FultonGlzjxkhgdr55-17-4502 08:18-0400Diastolic blood hzvxegqc54 mm[Hg]Lorraine Hemmer PA Work Phone: [phone] FultonBdrbpfapos87-26-8689 08:18-0400Heart rate74 /min Lorraine Hemmer PA Work Phone: [phone] MonettKcxlciixrb37-22-3763 08:18-0400Respiratory rate16 /minJasonen Hemmer PA Work Phone: [phone] MonettHhebaqszta11-49-2844 08:18-1282BbK6% (BldA) [Mass fraction]97 %Lorraine Hemmer PA Work Phone: [phone] FultonAxxxgivirh69-72-4939 08:18-0400Systolic blood gtoahstl000 mm[Hg]Lorraine Roberts PA Work Phone: [facility]ettQzgzolknmu82-71-0984 13:12-0400Body .6 cmCorey Evelin DO Work Phone: [facility]ettMllkftmhnb34-50-7970 13:12-0400Body mass index (BMI) [Ratio]50.12 kg/n5Wmymg Evelin DO Work Phone: [phone] [place], [place] [address]Vdqshjylzo50-73-4294 13:12-0400Body caravl052.45 kgCorey Evelin DO Work Phone: [phone] [place], [place] [address]C[facility] MonettJhndieajnl23-87-1667 13:12-0400Diastolic blood nqehwcaj37 mm[Hg]Piedad Evelin DO Work Phone: [phone] [place], [place] [address]Zypzqotpep26-44-6655 13:12-0400Systolic blood dzsemxwk233 mm[Hg]Peidad Evelin DO Work Phone: [phone] [place], [place] 43[address]908-27-2025 08:50-0400Body gssdca538.56 cmJasonen Hemmer HYDROTREATER OPERATOR-C Work Phone: [phone]08-27-2025 08:50-0400 Body mass index (BMI) [Ratio]49.8 kg/z7Yxjqq Hemmer HYDROTREATER OPERATOR-C Work Phone: [phone]08-27-2025 08:50-0400 Body imekry922.54 kgLorraine Hemmer HYDROTREATER OPERATOR-C Work Phone: [phone] [place], [place] [address]08-27-2025 08:50-0400 Diastolic blood csuszurh47 mm[Hg]Lorraine Hemmer HYDROTREATER OPERATOR-C Work Phone: [phone]08-27-2025 08:50-0400 Heart rate88 /minLorraine Hemmer HYDROTREATER OPERATOR-C Work Phone: [phone] [place], [place] 3718608-27-2025 08:50-0400 Systolic blood mm[Hg]Lorraine Hemmer HYDROTREATER OPERATOR-C Work Phone: [phone] [place], [place] [address]606-24-2025 07:59-0400 Body exhqww746.6 cmKaren Hemmer PA Work Phone: [facility]ettMzucjuvqow13-48-3749 07:59-0400Body mass index (BMI) [Ratio]49.95 kg/z9Kmkal Hemmer PA Work Phone: MOFult[facility]- FultonYkkmwjbwkb04-42-6339 07:59-0400Body kg Lorraine Hemmer PA Work Phone: [facility]ettMtouijzdyk78-45-3637 07:59-0400Diastolic blood mm[Hg]Lorraine Hemmer PA Work Phone: [facility] MonettRkojkzzskn43-65-0022 07:59-0400Heart rate94 /min Lorraine Hemmer PA Work Phone: [facility] MonettVeemutmdfk81-82-4630 07:59-5503OxM1% (BldA) [Mass fraction]98 %Lorraine Hemmer PA Work Phone: [facility] MonettEdwzptmvax27-53-7363 07:59-0400Systolic blood fsekydus655 mm[Hg]Lorraine Hemmer PA Work Phone: [facility] MonettOhmyejjntj11-13-5656 15:37-0400Body pgbtna179.6 cmKaren Hemmer PA Work Phone: [facility] MonettGzpuryknkk66-52-3677 15:37-0400Body mass index (BMI) [Ratio]49.47 kg/i2Saxvd Hemmer PA Work Phone: [facility] MonettYygfeabyxw22-68-0903 15:37-0400Body .73 kgKaren Hemmer PA Work Phone: [place] [address]Vibmtosnoh80-34-2928 15:37-0400Diastolic blood ydbxqpwu38 mm[Hg]Lorraine Hemmer PA Work Phone: [place] [address]Xufglbmgdw79-46-0139 15:37-0400Heart rate98 /min Lorraine Hemmer PA Work Phone: [place] [address]Ppsedfeldd87-51-8460 15:37-0400Respiratory rate16 /minKaren Hemmer PA Work Phone: noFult[facility]- FultonFexqyecywk33-32-4521 15:37-3924OzN7% (BldA) [Mass fraction]98 %Lorraine Hemmer PA Work Phone: noFulton [facility] Center- FultonRoeyesexzd45-51-2494 15:37-0400Systolic blood uxabqvqr485 mm[Hg]Lorraine Hemmer PA Work Phone: [facility] MonettPfcfmbjdfn30-77-5526 16:40-0400Body npfysf562.6 cmKaren Hemmer PA Work Phone: [facility] MonettUejblcshna02-03-1173 16:40-0400Body mass index (BMI) [Ratio]49.47 kg/c3Zlgei Hemmer PA Work Phone: [facility] MonettEskchmlevx32-79-1240 16:40-0400Body .73 kgKaren Hemmer PA Work Phone: [facility] MonettIzmksuagnc44-87-6368 16:40-0400Diastolic blood itvhwofy90 mm[Hg]Lorraine Hemmer PA Work Phone: [facility] MonettZimbuhkfww90-97-1160 16:40-0400Heart rate86 /min Lorraine Hemmer PA Work Phone: [facility] MonettHnshszchbd45-13-2618 16:40-0400Respiratory rate16 /minKaren Hemmer PA Work Phone: [facility] MonettJnmsyckevt50-54-1901 16:40-4398RoH3% (BldA) [Mass fraction]97 %Lorraine Hemmer PA Work Phone: [facility] MonettZcpecfplvw49-39-3274 16:40-0400Systolic blood faipexfq086 mm[Hg]Lorraine Hemmer PA Work Phone: [facility] MonettJakboauwnh47-56-8185 16:27-0500Body fjxikp144.6 cmKaren Hemmer PA Work Phone: [facility] MonettZnkqsaqmnk79-31-2793 16:27-0500Body mass index (BMI) [Ratio]49.44 kg/u7Pvdtr Hemmer PA Work Phone: [facility] MonettExidhybesu88-26-6413 16:27-0500Body lcmzio641.64 kgLorraine Roberts PA Work Phone: NOFulton [facility] Center- FultonNitqniwgmx91-58-5366 16:27-0500Diastolic blood akyqbvvi02 mm[Hg]Lorraine Roberts PA Work Phone: NOFult[facility]- FultonXhzykppafq47-65-6924 16:27-0500Heart rate82 /min Lorraine Roberts PA Work Phone: NOFulton [facility] Center- FultonXjqtytnnql17-99-7166 16:27-3953GyC9% (BldA) [Mass fraction]99 %Lorraine Roberts PA Work Phone: NOFulton [facility] Center- FultonDjomncnkdm70-70-3913 16:27-0500Systolic blood mcqrnyof907 mm[Hg]Lorraine Roberts PA Work Phone: [facility] Encounters Encounter DateEncounter TypeCare ProviderFacilityStart: 71-12-9443ufnesdnkcx LORRAINE Bennett AvailableStart: 08-20-2025 End: 28-96-8282Vpkdgg flowsTeetee Roberts PA Work Phone: [facility] Aguila MedinceStart: 08-20-2025 End: 32-57-9179Qmdkhe Lorraine Roberts PA Work Phone: [facility] Mary[facility] Aguila MedinceStart: 08-20-2025 End: 49-34-7207Nlqswcabm encounterJr. Jeff Sharpe DO Work Phone: [facility] OrthopaedicsComment on above:can't find her surgery dateStart: 08-20-2025 End: 60-56-9649rcartipbxjLSUWX M HEMMERNot AvailableStart: 08-20-2025 End: 70-40-0398Pouhab outpatient visit 25 minutesLorraine Roberts PA Work Phone: NOPB [facility] MedinceComment on above:Type 2 diabetes mellitus with other specified complication, without long-term current use of insulin (HCC) (Primary Dx); Morbid (severe) obesity due to excess calories (CMS-HCC); Depression with anxiety; Encounter for screening mammogram for malignant neoplasm of breast; Dislocation of right knee with medial meniscus tear, sequela; PCOS (polycystic ovarian syndrome)Start: 08-11-2025 End: 14-39-7875Xdaxna flowsheetCorey Evelin DO Work Phone: [facility]BGYNStart: 08-11-2025 End: 77-17-0860Utnhbi flowsheetCorey Evelin DO Work Phone: NOCM [facility] OBGYNStart: 08-11-2025 End: 44-72-8586qvdqtwkiidHFKXK FAZIONot AvailableStart: 08-11-2025 End: 16-44-2261Ohxpkh outpatient visit 15 minutesCorey Evelin DO Work Phone: [facility] OBGYNComment on above:BMI 50.0-59.9, adult ([facility]); Encounter for weight managementStart: 07-22-2025 End: 86-69-2087kgkwtkcxxkJcgpq Hemmer HYDROTREATER OPERATOR-C Work Phone: [facility] Work Phone: Start: 07-22-2025 End: 61-16-1685Ezluilq encounter procedureRobert Rico Steele MD-[facility] Work Phone: Start: 05-27-2025 End: 43-29-9998Glqckb flowsheetJr. Jeff Sharpe DO Work Phone: [facility] ORTHOStart: 05-27-2025 End: 53-61-5437Kerzup flowsheetJr. Jeff Sharpe DO Work Phone: [facility] ORTHOStart: 05-27-2025 End: 39-37-4186kipbwrulboLQ., JEFF SHARPENot AvailableStart: 05-27-2025 End: 16-06-6351Ssbrch outpatient visit 25 minutesJr. Jeff Sharpe DO Work Phone: noms SWS ORTHOComment on above:Acute pain of right knee (Primary Dx); Arthritis of right knee; Acute medial meniscus tear of right knee, initial encounterStart: 05-19-2025 End: 86-69-5602Utiucz outpatient visit 25 minutesLorraine MILLER Work Phone: NOMS CI FMComment on above:Type 2 diabetes mellitus with other specified complication, without long-term current use of insulin ([facility]) (Primary Dx); Depression with anxiety; Morbid (severe) obesity due to excess calories ([facility]); BMI 45.0-49.9, adult ([facility]); Primary osteoarthritis of right knee; Dislocation of right knee with medial meniscus tear, sequelaStart: 05-19-2025 End: 96-89-9269mxhytvpvwcNNJUF M HEMMERNot AvailableStart: 04-28-2025 End: 13-03-7021Dqjkzr outpatient visit 15 minutesRonnie MILLER Work Phone: [facility] FB ORTHOPAEDICSComment on above:Acute pain of right knee (Primary Dx); Arthritis of right knee; Acute medial meniscus tear of right knee, initial encounterStart: 04-28-2025 End: 94-01-9120wvyciufasoPJHULGD J MEYERNot AvailableStart: 04-28-2025 End: 58-20-7539Uvahbw Elliot MILLER Work Phone: n[facility] FB ORTHOPAEDICSStart: 04-28-2025 End: 88-34-1002Iglqyr Elliot MILLER Work Phone: [facility] FB ORTHOPAEDICSStart: 04-03-2025 End: 46-31-5639Arpzzywot Result Sherwin MILLER Work Phone: [facility] External Department UnsolicitedStart: 04-03-2025 End: 50-23-6105Xdoxclufj Result EncounterLorraine MILLER Work Phone: [facility] External Department UnsolicitedStart: 04-03-2025 End: 47-12-3117Dadopk-up encounterLorraine MILLER Work Phone: [facility] CI FMStart: 03-09-2025 End: 75-00-3771Bbqvrf outpatient visit 15 minutesLorraine Roberts PA Work Phone: [facility] CI FMComment on above:Acute pain of right knee (Primary Dx); Primary osteoarthritis of right knee; Internal derangement of right kneeStart: 03-09-2025 End: 07-05-1509djyfhfxqcuCMYLU M HEMMERNot AvailableStart: 03-09-2025 End: 58-26-9634Sfetdu Lorraine Steele Hemmer PA Work Phone: [facility] CI FMStart: 03-09-2025 End: 18-87-4624Lvaoeg Lorraine Steele Hemmer PA Work Phone: [facility] CI FMStart: 02-16-2025 End: 81-28-5344Mcssrn outpatient visit 25 minutesLorraine Roberts PA Work Phone: [facility] CI FMComment on above:Primary osteoarthritis of right knee (Primary Dx); Type 2 diabetes mellitus with other specified complication, without long-term current use of insulin (CMS/[facility]); Morbid (severe) obesity due to excess calories (CMS/HCC); BMI 45.0-49.9, adult (CMS/HCC)Start: 02-16-2025 End: 29-09-9970zlsxjueegkJTDLX M HEMMERNot AvailableStart: 02-16-2025 End: 81-60-9550Uepqbp Lorraine Steele Hemmer PA Work Phone: [facility] CI FMStart: 02-16-2025 End: 69-29-0219Nzwiqw Lorraine Steele Hemmer PA Work Phone: [facility] CI FMStart: 02-06-2025 End: 43-39-9434kimrxwsurvJIDBAnup Taylor AvailableStart: 12-12-2024 End: 98-34-6902xasqaqmbboJUHFJ ALTNot AvailableStart: 12-12-2024 End: 42-29-9262Xbiegf flowsheetTyler Alt RNNOMS FNR FMStart: 12-12-2024 End: 41-01-6207Navstr flowsheetTyler Alt RNNOMS FNR FMStart: 10-07-2024 End: 08-93-1298Iphnsk outpatient visit 25 minutesLorraine MILLER Work Phone: [facility] CI FMComment on above:Type 2 diabetes mellitus with other specified complication, without long-term current use of insulin (CMS/HCC) (Primary Dx); Morbid (severe) obesity due to excess calories (CMS/HCC); Acute non-recurrent maxillary sinusitisStart: 10-07-2024 End: 86-25-0530lijqvcxdwwRRBIW M HEMMERNot AvailableStart: 02-96-1838sltuufheuj UNKNOWN PROVIDERFacility:METROHealthStart: 10-02-2021 End: 96-54-7875nmuczaiyefJTOUM PARKERFacility:H1 Procedures DateProcedureProcedure DetailPerforming ClinicianStart: 97-98-8614Iadrqpnbji glycosylated Ella MILLER Work Phone: Start: 92-37-4619Ahvhd radiography of pelvisLorraine Roberts HYDROTREATER OPERATOR-C Work Phone: Start: 01-48-2851Udrlcpjgka glycosylated Ella MILLER Work Phone: Start: 83-71-9889Iuvmlovyebcvew aspir&/inj major jt/bursa w/o usMatthew Nia MILLER Work Phone: Start: 33-52-5878Rkauavwrbj examination knee 1/2 views Ronnie MILLER Work Phone: Start: 58-85-1451UP KNEE RT WO Marisol MILLER Work Phone: Start: 11-95-1995Wcztuhwpvj glycosylated Ella MILLER Work Phone: Start: 22-37-2217PbruoartthfXnvuv Hemmer PA Work Phone: Plan of Treatment DateCare ActivityDetailAuthorStart: 67-06-2456Xreutcbmz for malignant neoplasm of colonNOMS HealthcareStart: 65-74-8045Xavtuyou screeningDiabetes: Retinopathy ScreeningNOAK HealthcareStart: 93-77-2176Qnejewces vaccinationInfluenza Vaccine (#1)[facility] HealthcareComment on above:Postponed from 07/27/2025 (Patient Refused) Start: 64-63-9075Jkbtv screening for proteinDiabetes: Urine Protein Screening NOMS HealthcareStart: 11-24-2025 End: 85-28-6749Kcvunid encounter /30/2025 10:00 AM EST Office Visit N[facility] Maryannfidelia Aguila [facility] [address] [facility] [address] [place] [address] Lorraine Roberts PA [address] [facility] [address] [place] [address] NOMS [place] Aguila [facility] HospitalnceStart: 11-19-2025 Hemoglobin A1c measurementDiabetes: Hemoglobin R5GZIMG HealthcareStart: 10-15-2025 End: 30-90-4835Weuurmi encounter procedureNOST. JOHN[facility]S [facility] ORTHOStart: 09-15-2025 End: 22-95-2279Ddjsvwg encounter deuvbtvaa72/21/2025 2:00 PM EDT Procedure Visit [facility] Maddison VILLANUEVA [address] [place] [address] Latrice Villavicencio, PA [address] [place], [place] [id number] NOMS Maddison SABAGYNStart: 09-08-2025 End: 24-13-9800Cujqyai encounter wazzkesnh99/14/2025 1:40 PM EDT Office Visit [facility] Maddison VILLANUEVA [address] [place] [address] Piedad Waters DO [address] [place], [place] [address] NOMJimbo SABAGYNStart: 09-08-2025 End: 25-65-9711Zklolss encounter uqmfhtgjy83/14/2025 1:40 AM EDT Office Visit [facility] Maddison VILLANUEVA [address] [place] [address] Piedad Waters, DO [address] [place] [address] MACK SABAGYNStart: 08-20-2025 End: 27-14-2605OKS Breast - bilateral screeningBilateral screening mammogram with tomosynthesis Imaging Routine Encounter for screening mammogram for malignant neoplasm of breast Expected: 08/20/2025, Expires: 10/20/2026NO[facility] Healthcare Work Phone: Comment on above:Expected: 08/20/2025, Expires: 10/20/2026Start: 08-20-2025 End: 53-27-4821Hnlnqgr encounter procedureNOTRI-CITY MEDICAL CENTERtart: 30-56-7234Tberlqnplc A1c measurementDiabetes: Hemoglobin R9UDFYD HealthcareStart: 29-66-8362Efngrfkkn for malignant neoplasm of breastMammogramPRIMARY CHILDREN'S [facility]ITAL HealthcareStart: 08-11-2025 End: 03-93-6734Moghpou encounter dluukgtem63/16/2025 11:10 AM EDT Office Visit MACK VILLANUEVA [address] [place] [address] Piedad Waters, DO [address] [place] [address] ArrivedMACK [place] OBGYNComment on above:ArrivedStart: 64-58-4096Hwhbqqtgf vaccinationPRIMARY CHILDREN'S HOSPITAL HealthcareStart: 87-21-6177Atrxz radiography of pelvisXR pelvis 1-2VMercy Health – The Jewish Hospitaltart: 19-05-2397W-ray of right knee, four viewsXR knee RT 4V*[facility] Hospitaltart: 95-70-1906IR Knee - right 4 ViewsMercy Health – The Jewish Hospitaltart: 42-92-3232GB Pelvis 1 or 2 ViewsMercy Health – The Jewish Hospitaltart: 05-27-2025 End: 22-48-4845Lxrqynw encounter kceukfikp45/02/2025 8:30 AM EDT Office Visit [facility] [address] [place] [address] [place] [address] Jr. Jeff Sharpe DO [address] [place] [address] [place] [address] N[facility]S [facility] ORTHOStart: 05-19-2025 End: 79-24-9732Csvkdnf encounter /24/2025 8:00 AM EDT Office Visit [facility] CI FM [address] [place] [address] [place] [address] Lorraine Roberts, PA [address] [place] [address] [place] [address] NOMS CI FMStart: 55-58-2656Mybvyyqums A1c measurement Diabetes: Hemoglobin H2WAYSU HealthcareStart: 04-28-2025 End: 45-82-3087Tlyldul encounter moctrgkml28/03/2025 2:45 PM EDT Office Visit [facility] ORTHOPAED[facility] [address] [place] [address] Ronnie Nielsen PA [address] [place] [address] [place] [address] Acute pain of right knee (Primary Dx)[facility] ORTHOPAEDICS Comment on above:Acute pain of right knee (Primary Dx)Start: 03-09-2025 End: 15-47-8536Dwrdzqg encounter cdzyawqqd23/14/2025 3:30 PM EDT Office Visit [facility] CI FM [address] [place] [address] [place] [address] Lorraine Roberts, PA [address] [place] [address] [place] [address] ArrivedNOMS CI FMComment on above:ArrivedStart: 03-09-2025 End: 70-87-3053GH Knee - right WO contrastMR knee right wo IV contrast Imaging Routine Acute pain of right knee Primary osteoarthritis of right knee Internal derangement of right knee Expected: 03/09/2025, Expires: 03/09/2026N[facility] Healthcare Work Phone: Comment on above:Expected: 03/09/2025, Expires: 03/09/2026Start: 02-16-2025 End: 67-69-1005Tkzgujp encounter txvymqkav56/24/2025 4:30 PM EDT Office Visit [facility] CI FM [address] [place] [address] [place] [address] Lorraine Roberts PA [address] [place] [address] [place] [address] ArrivedNOMS CI FMComment on above:ArrivedStart: 01-07-2025 End: 23-78-8433Crdrnlm encounter /12/2025 4:30 PM EST Office Visit [facility] CI FM [address] [place] [address] [place] [address] Lorraine Roberts PA [address] [place] [address] [place] [address] NOMS CI FMStart: 10-08-1819Xarfacczdy A1c measurement Diabetes: Hemoglobin J9AXWVI HealthcareStart: 26-67-1261Qemrx screening for proteinDiabetes: Urine Protein ScreeningNOAK HealthcareStart: 12-12-2024 End: 16-94-5814Puhoxugr Tetxxci0112/12/2024 3:00 PM EST Clinical Support [facility] FM [address] [place] [address] Mike Gamez RN Arrived NOMS FNR FMComment on above:ArrivedStart: 35-36-0667Lnerylenw vaccination Influenza Vaccine (#1)N[facility] HealthcareStart: 48-85-1437Cltnrkszt for malignant neoplasm of cervixNOMS HealthcareStart: 74-13-0576Npxcwtbue for malignant neoplasm of cervixPap SmearNOMS HealthcareStart: 23-70-5006Wljdvfll screening Diabetes: Retinopathy ScreeningNOMS HealthcareStart: 84-13-0928Aqrrguafv for malignant neoplasm of colonNOMS [facility] Immunizations Immunization DateImmunizationNotesCare NatetifgPxkxitcc74-66-0084Qvlxhivlg, injectable, Madin Boyd Canine Kidney, preservative free, quadrivalentLorraine MILLER Work Phone: [facility] Work Phone: [phone]jzoq virus vaccine, unspecified formulationLorraine MILLER Work Phone: [facility] Healthcare Payers DatePayer CategoryPayerPolicy [id number] Health InsuranceHEALTHSCOPE Member Subscriber Plan / Payer (Effective 2022- Present) Name: Camila Archibald Relation to Subscriber: Self Name: Camila Archibald Payer ID: Not on file Type: Not on file Address: [id number] [place] [id number] 03-34-0370Qllerbb Health [id number] 2..1.749366.3.57[id number] 2..1.350687.3.57[id number] 2..1.098562.3.57[id number] 2..1.384596.3.57[id number] 2..1.490472.3.57[id number] 2..1.104855.3.57[id number] 2..1.872372.3.57[id number] 2.16.840.1.131039.3.57[id number] 2.16.840.1.523646.3.57[id number] 2.16.840.1.797572.3.57[id number] 2.16.840.1.863512.3.57[id number] 2.16.840.1.269675.3.57[id number] 2..840.1.375285.3.57[id number] 2..840.1.138672.3.579.[id number] 2.16.840.1.886134.3.579.2.531 Social History DateTypeDetailFacilityStart: 06-08-2023 End: 92-15-4313Zfwlwcn smoking status NHISNever smoked tobaccoNOMS Healthcare Start: 04-88-4145Fkzztpn use and exposureSmokeless tobacco non-userNOMS HealthcareStart: 10-07-2024 End: 09-23-3933Blnmogayr beverage intakeCurrent drinker of alcohol (finding)N[facility]S HealthcareStart: 10-07-2024 End: 13-50-2471Tfywdog of Social functionNOMS HealthcareStart: 10-07-2024 End: 49-02-3869I7759 Health LiteracyNOMS HealthcareHow often do you need to have someone help you when you read instructions, pamphlets, or other written material from your doctor or pharmacy [SILS]Patient declines to respondNOMS HealthcareStart: 48-49-3066Rbxkfux Commentsocially. caffeine intake: soda/pop 3- 4 cans a day.[facility]Start: 87-18-1554Jki assigned at birthNot on file [facility]Start: 05-19-2025 End: 17-79-3575Ypfvwncfz beverage intakeEx-drinker (finding)NOM HealthcareSex Female (finding)[facility] Hospitaltart: 31-66-0408Sgt Assigned At BirthFemalSouthern [facility] Medical CenterNEGATED: Highlighted rowN Medical Equipment Procedure CodeEquipment CodeEquipment Original TextEquipment IdentifierDates1 each by In Vitro route [id number]: each [id number]: 07-08-2024 End: each by In Vitro route [id number]: 07-06-2025 End: 08-11-2025 Functional Status DlqbYjlaernndeAplajqCjsqignn87-49-6176Cymowpa Health Questionnaire 2 item (PHQ- 2) [Reported][facility]ettXrkwnitydg23-49-4237Yqkdate Health Questionnaire 2 item (PHQ- 2) [Reported][facility] Clinical Notes 10-07-2024 to 08-21-2025 Note Date & UgidCnpjXrbcxenr24-54-1705 Telephone encounter Note* Telephone Encounter - Amber Mayen MA - 08/21/2025 8:47 AM EDT If you could please let her know that he surgery will be on November 05 - thanks you! [facility] MonettOtniwjhaug04-23-8876 Miscellaneous Notes* Telephone Encounter - Amber Mayen MA - 08/21/2025 8:47 AM EDT If you could please let her know that he surgery will be on November 05 - thanks you! * Telephone Encounter - Camila Butt - 08/20/2025 10:51 AM EDT Camila called and said that she can't find her surgery date, she knows its in October but she lost the date, please advise documented in this encounterNOFulton Medical Center- FultonXnvooncaoo22-32-5787 Telephone encounter Note* Telephone Encounter - Camila Butt - 08/20/2025 10:51 AM EDT Camila called and said that she can't find her surgery date, she knows its in October but she lost the date, please advise [facility] Nbqeaoixlh26-20-4344 History of Present illness Narrative* PAUL Boyle - 08/20/2025 8:00 AM EDT Images from the original note were not included. HPI medication questions Additional comments: Pt was started on Adipex by Dr. Waters but has not started it yet. She wants todiscuss the med with you first before she decides if she wants to take it. Last edited by PAUL Boyle on 08/20/2025 8:54 AM. Subjective Patient ID: Camila Archibald is a 50 y.o. female who presents for diabetes. Camila is present today for follow up diabetes. Denies foot ulcers, tingling/numbness in extremities. Admits to a few hypoglycemic episodes due to not eating when she should have. Does check BS's athome off/on and on average is running between 150 - 165. Currently on Metformin. Also wants to discuss Citalopram - she is on it for anxiety and is not sure she still needs to be on it. States I have a terrible mom. Had a lot of stress at work when she first started the Celexa.States the Celexa almost makes her not have feelings. Has been on it for > 10 years. Did get a promotion at work and is making more money. Oversees 5 plants now instead of 1, but it is going well. Dr. Gómez gave her a second opinion and did recommend surgery. He wants to do a knee replacement, possibly partial, possibly total. Is scheduled for Knee Arthroscopy in October with Dr. Sharpe. Bought an infinity hoop for exercise. Over the past 2 weeks, how often have you been bothered by any of the following problems? Little interest or pleasure in doing things: Not at all (currently on medication) Feeling down, depressed, or hopeless: Not at all (currently on medication) Patient Health Questionnaire-2 Score: 0 Current Outpatient Medications on File Prior to Visit Medication Sig Dispense Refill lidocaine (Lidoderm) 5 % patch APPLY 1 PATCH TOPICALLY TO THE SKIN DAILY NEEDED FOR PAIN. LEAVE ON MOST PAINFUL AREA FOR UP TO 12 HOURS metFORMIN (Glucophage) 500 MG tablet Take 1 tablet (500 mg) by mouth in the morning and 1 tablet (500 mg) in the evening. Take with meals. 200 tablet 1 phentermine (Adipex-P) 37.5 MG tablet Take 1 tablet (37.5 mg) by mouth in the morning. Take before meals. 30 tablet 0 [DISCONTINUED] citalopram (CeleXA) 40 MG tablet Take 1 tablet (40 mg) by mouth Daily 90 tablet 3 No current facility-administered medications on file prior to visit. I have reviewed and reconciled the history and medication list with the patient today. Allergies Allergen Reactions Latex Other Reaction(s): Unknown Semaglutide GI intolerance Social History Tobacco Use Smoking status: Never Smokeless tobacco: Never Vaping Use Vaping status: Never Used Substance Use Topics Alcohol use: Not Currently Comment: socially. caffeine intake: soda/pop 3-4 cans a day. Drug use: Never Family History Problem Relation Name Age of Onset Thyroid disease Mother Celena Hyperlipidemia Mother Celena Osteoporosis Mother Celena Heart failure Father Hypertension Father Polycystic ovary syndrome Sister No Known Problems Son Past Medical History: Diagnosis Date Acute anxiety Arthritis 2004 Alcantara's cyst 01/2025 Depression Diabetes mellitus (HCC) 2023 Internal derangement of left knee 07/08/2024 Leukocytosis 07/08/2024 PCOS (polycystic ovarian syndrome) Sinusitis 07/08/2024 Tear of meniscus of knee 2021 Trigger finger 2021 Past Surgical History: Procedure Laterality Date CHOLECYSTECTOMY DILATION AND CURETTAGE OF UTERUS 2011 HAND SURGERY KNEE ARTHROPLASTY 2021 KNEE SURGERY Left 12/2021 LT KNEE SCOPE PER DR SHARPE TRIGGER FINGER RELEASE Left 09/16/2021 Visit Vitals BP 136/86 Pulse 74 Resp 16 Ht 5' 4 Wt 292 lb SpO2 97% BMI 50.12 kg/m Smoking Status Never BSA 2.44 m Review of Systems Constitutional: Negative for chills, fatigue and fever. Respiratory: Negative for cough, shortness of breath and wheezing. Cardiovascular: Negative for chest pain, palpitations and leg swelling. Gastrointestinal: Negative for abdominal pain, constipation, diarrhea, nausea and vomiting. Musculoskeletal: Positive for arthralgias and gait problem. Skin: Negative for rash. Psychiatric/Behavioral: Apathy Objective Physical Exam Constitutional: General: She is [...] breath sounds. No wheezing, rhonchi or rales. Skin: General: Skin is warm and dry. Neurological: General: No focal deficit present. Mental Status: She is alert and oriented to person, place, and time. Gait: Gait abnormal (Antalgic). Psychiatric: Mood and Affect: Mood normal. Behavior: Behavior normal. Office Visit on 08/20/2025 Component Date Value Ref Range Status Hemoglobin A1C 08/20/2025 6.8 Final Assessment/Plan Diagnoses and all orders for this visit: Type 2 diabetes mellitus with other specified complication, without long-term current use of insulin ([facility]) - POCT Glycated hemoglobin, total Advised pt that her HgbA1c has improved from 7.3 to 6.8. Discussed treatment of hypoglycemia. Continue Metformin as prescribed. Will recheck HgbA1c in 3 months. Morbid (severe) obesity due to excess calories ([facility]) Patient wished to discuss Adipex in more detail today prior to starting the Rx as prescribed by . Advised patient of possible side effects. Patient is to stop the medication and call Dr. Waters if pt experiences any syncope or SOB. Advised pt of most common side effects of the medication including constipation. Will need to document a significant weight loss in order to continue the medica tion. Pt will need routine follow ups with Dr. Waters for monitoring. The patient is to exercise regularly and work on diet modification, encouraged portion control. Lifestyle modifications must be continued in order to maintain weight loss. Patient voiced understanding. Depression with anxiety - citalopram (CeleXA) 20 MG tablet; Take 1 tablet (20 mg) by mouth Daily Will have pt decrease her Celexa to 20 mg daily. If does well, can continue to gradually decrease the dosage and taper pt off of the medication. Encounter for screening mammogram for malignant neoplasm of breast - Bilateral screening mammogram with tomosynthesis; Future Provided patient with an order for an updated Mammogram. If results are negative/normal, will plan to continue with routine yearly screenings. Dislocation of right knee with medial meniscus tear, sequela Discussed options with pt. Given pt's age, recommend proceed with Arthroscopy prior to proceeding with TKA, do decrease likely recovering time, which will aid in her efforts to lose weight. Advised knee replacements done at a younger age may need to be redone in 10-15 years. PCOS (polycystic ovarian syndrome) The patient is seeing a medical consultant for this condition, treatment is deferred to that specialist. Correspondence from that specialist and any available testing were reviewed during today's visit. Follow up in about 3 months (around 11/19/2025) for Diabetes. documented in this encounterCox MonettSikjmrtfxd39-28-9803 History of Present illness Narrative* Lorraine Chaparro LPN - 08/11/2025 1:00 PM EDT Reason for Appointment: Patient ID: Camila Archibald is a 50 y.o. female who presents for Discuss Hysterectomy Patient presents today for Consult appointment. MEDICATIONS Current Outpatient Medications Medication Instructions citalopram (CELEXA) 40 mg, Oral, Daily lidocaine (Lidoderm) 5 % patch APPLY 1 PATCH TOPICALLY TO THE SKIN DAILY NEEDED FOR PAIN. LEAVE ON MOST PAINFUL AREA FOR UP TO 12 HOURS metFORMIN (GLUCOPHAGE) 500 mg, Oral, 2 times daily with meals ALLERGIES Allergies Allergen Reactions Latex Other Reaction(s): Unknown Semaglutide GI intolerance PROBLEMS Active Ambulatory Problems Diagnosis Date Noted Myalgia 01/01/2024 Asthma in adult (HCC) 07/08/2024 Depression with anxiety 07/08/2024 PCOS (polycystic ovarian syndrome) 07/08/2024 Seasonal allergic rhinitis 07/08/2024 Thrombocytosis 07/08/2024 Elevated LDL cholesterol level 07/08/2024 Type 2 diabetes mellitus with other specified complication ([facility]) 07/08/2024 Morbid (severe) obesity due to excess calories ([facility]) 07/08/2024 BMI 45.0-49.9, adult ([facility]) 07/08/2024 Primary osteoarthritis of right knee 05/19/2025 Dislocation of right knee with medial meniscus tear 05/19/2025 Resolved Ambulatory Problems Diagnosis Date Noted Internal derangement of left knee 07/08/2024 Leukocytosis 07/08/2024 Other chronic pain 07/08/2024 Sinusitis 07/08/2024 Type 2 diabetes mellitus ([facility]) 07/08/2024 Past Medical History: Diagnosis Date Acute anxiety Arthritis 2004 Alcantara's cyst 01/2025 Depression Diabetes mellitus ([facility]) 2023 Tear of meniscus of knee 2021 Trigger finger 2021 HISTORY PAST MEDICAL HISTORY SOCIAL HISTORY Past Medical History: Diagnosis Date Acute anxiety Arthritis 2004 Alcantara's cyst 01/2025 Depression Diabetes mellitus ([facility]) 2023 Internal derangement of left knee 07/08/2024 Leukocytosis 07/08/2024 PCOS (polycystic ovarian syndrome) Sinusitis 07/08/2024 Tear of meniscus of knee 2021 Trigger finger 2021 Social History Tobacco Use Smoking status: Never Smokeless tobacco: Never Vaping Use Vaping status: Never Used Substance Use Topics Alcohol use: Not Currently Comment: socially. caffeine intake: soda/pop 3-4 cans a day. Drug use: Never FAMILY HISTORY Family History Problem Relation Name Age of Onset Thyroid disease Mother Celena Hyperlipidemia Mother Celena Osteoporosis Mother Celena Heart failure Father Hypertension Father Polycystic ovary syndrome Sister No Known Problems Son SURGICAL HISTORY Past Surgical History: Procedure Laterality Date CHOLECYSTECTOMY DILATION AND CURETTAGE OF UTERUS 2011 HAND SURGERY KNEE ARTHROPLASTY 2021 KNEE SURGERY Left 12/2021 LT KNEE SCOPE PER DR SHARPE TRIGGER FINGER RELEASE Left 09/16/2021 REVIEW OF SYSTEMS Review of Systems: Review of Systems Constitutional: Negative. HENT: Negative. Eyes: Negative. Respiratory: Negative. Cardiovascular: Negative. Gastrointestinal: Negative. Genitourinary: Negative. Musculoskeletal: Negative. Skin: Negative. Neurological: Negative. All other systems reviewed and are negative. Hematological: Negative. Endocrine: Negative. Allergic/Immunologic: Negative. OBJECTIVE Objective: Physical Exam Constitutional: Appearance: Normal appearance. She is well-developed. Cardiovascular: Rate and Rhythm: Normal rate and regular rhythm. Pulmonary: Effort: Pulmonary effort is normal. Breath sounds: Normal breath sounds. Abdominal: General: Bowel sounds are normal. There is no distension. Palpations: Abdomen is soft. Tenderness: There is no abdominal tenderness. There is no guarding or rebound. Musculoskeletal: General: No swelling. Normal range of motion. Right lower leg: No edema. Left lower leg: No edema. Neurological: Mental Status: She is alert and oriented to person, place, and time. Skin: General: Skin is warm and dry. Psychiatric: Mood and Affect: Mood normal. Behavior: Behavior normal. Vitals and nursing note reviewed. Exam conducted with a resource conservationist present. Vitals: Estimated body mass index is 50.12 kg/m as calculated from the following: Height as of this encounter: 5' 4 . Weight as of this encounter: 292 lb. BP: 124/80 No LMP recorded. ASSESSMENT & PLAN ICD-10-CM 1. Menorrhagia with regular cycle N92.0 2. BMI 50.0-59.9, adult (CMS-HCC) Z68.43 Pt presents with complaints of weight gain and inability to lose weight, discussed adding adipex. Patient presents today for initial Adipex prescription. The importance of keeping a food journal, proper nutrition/diet, and exercise regimen while taking Adipex has been discussed. Patient verbalized understanding and signed consents to initiate (Adipex) medication therapy. Patient was given a printed prescription signed by provider to take to their local pharmacy. Follow Up: Patient is to return to the office in 1 month for further evaluation to assess patient progress. Weight and blood pressure will need to be captured in order for patient to receive 2nd prescription. Documented by Lorraine Chaparro LPN on behalf of: Piedad Waters DO documented in this encounterCox [id number] Evaluation note* Diagnosis Onset Date Resolution Status Admit Date Obesity, morbid, BMI 40.0-49.9 acuteAugust 2024 8:22amPrimary osteoarthritis of right kneeacuteAugust 2024 8:22am [facility] Work Phone: [phone]) 249-949207-02-2025 History of Present illness Narrative* Jr. Jeff Shrape, DO - 05/27/2025 8:30 AM EDT Images from the original note were not included. HISTORY OF PRESENT ILLNESS: EST PT Camila Archibald is an 49 y.o. @ female. (EST PT) (LAST APPT W/ SOPHIE) - RECHECK (R) KNEE ; S/P CORTISONE INJ 04/28/25 (4 WKS, 1 DAY) - HERE TODISCUSS OPTIONS XRAY B/L KNEE EPIC 04/28/25 XRAY RT KNEE & TIB/FIB [facility] 02/11/25 (PUSHED TO CHANGE PACS) MRI [facility] 04/03/25 (PUSHED TO CHANGE PACS) VASCULAR US [facility] 02/11/25 (PUSHED TO CHANGE PACS) PREDNISONE 02/16/25 - SOME RELIEF CORTISONE INJ 04/28/25 NO PT S/P CORTISONE INJ - TEMPORARY RELIEF. ADMITS DECREASE IN DISCOMFORT. STILL NOTES MEDIAL ANTERIOR / POSTERIOR DISCOMFORT. CAN RADIATE INTO CALF. ADMITS SWELLING TO FOOT INTERMITTENTLY. DENIES N/T. FULL ROM - PAINFUL. DIFFICULTY WITH STEPS. ADMITS OCCASIONAL WEAKNESS / INSTABILITY. 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 ADMITS POPPING / GRINDING / BUCKLING. NOT WAKING HS FREQUENTLY SINCE INJ. TYL PRN. CBD ROLL ON - WITH RELIEF. TRIED ICING /HEATING - EXACERBATED SYMPTOMS. ADMITS ELEVATION. HAS NOT USED KT TAPE SINCE LAST VISIT. 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 NO PREVIOUS SURGERY. ALLERGIES: Allergies Allergen Reactions Latex Other Reaction(s): Unknown Semaglutide GI intolerance HOME MEDICATIONS: Current Outpatient Medications Medication Instructions Azelastine HCl 137 MCG/SPRAY solution 1 spray, Nasal, 2 times daily Blood Glucose Monitoring Suppl (Blood Glucose Monitor System) w/Device kit 1 each, Does not apply, Daily citalopram (CELEXA) 40 mg, Oral, Daily Glucose Blood (Blood Glucose Test) strip 1 each, In Vitro, Daily Lancets 30G misc 1 each, Does not apply, Daily metFORMIN (GLUCOPHAGE) 500 mg, Oral, 2 times daily with meals PHYSICAL EXAM: Knee Musculoskeletal Exam Gait Gait is normal. Limp: right Inspection Leg length disparity: no discrepancy Right Erythema: none Effusion: mild Edema: none Ecchymosis: none Deformity: none Alignment: normal Palpation Right Increased warmth: none Masses: none Crepitus: patellofemoral Tenderness: present Medial joint line: moderate Medial retinaculum: mild Patella: moderate Pes anserinus: moderate Range of Motion Right Right knee range of motion is normal and full. Active extension: 0 Passive extension: 0 Active flexion: 120 Passive flexion: 125 Range of motion additional comments: + PAIN ON TERMINAL FLEXION AND EXTENSION Strength Right Right knee strength is normal. Extension: 5/5. Extension is affected by pain. Flexion: 5/5. Flexion is affected by pain. Instability Right Instability signs: none - stable Varus stress grade: normal Valgus stress grade: normal Anterior drawer: normal Medial Sherice test: positive Neurovascular Right Right knee neurovascular exam is normal. Pulses - PT: normal Posterior tibial: 2+ Capillary refill: warm and well-perfused Special Signs Right Right knee special signs are normal. Straight leg raise: normal Patellar compression: mild Patellar apprehension: mild General Constitutional: appears stated age Labored breathing: no Psychiatric: normal mood and affect Neurological: alert Skin: intact Lymphadenopathy: none Vitals: There is no height or weight on file to calculate BMI. Tobacco Use: Low Risk (05/27/2025) Patient History Smoking Tobacco Use: Never Smokeless Tobacco Use: Never Passive Exposure: Not on file Alcohol Use: Patient Declined (10/07/2024) AUDIT-C Frequency of Alcohol Consumption: Patient declined Average Number of Drinks: Patient declined Frequency of Binge Drinking: Patient declined IMAGING: Procedures No orders of the defined types were placed in this encounter. ASSESSMENT: ICD-10-CM 1. Acute pain of right knee M25.561 2. Arthritis of right knee M17.11 3. Acute medial meniscus tear of right knee, initial encounter S83.241A PLAN: We discussed her symptoms, physical exam, MRI, and x-rays. We have discussed arthroscopy for medialmeniscus tear. We have also discussed that there is not much we can do to improve arthritic degeneration that she has with an arthroscopy. We recommended a diagnostic and operative arthroscopy of herleft knee for medial meniscus tear and she is in agreement with this. We will see her back on the day of surgery for a diagnostic and operative arthroscopy of the right knee. We have discussed both surgical and nonsurgical treatment options with the patient and the risks and benefits associated with both. The patient is requesting surgical intervention because the patient's symptoms were affecting the patient's activities of daily living and ability to sleep. The patient's symptoms were unresponsive to outpatient treatment options. After lengthy discussions involving but not limited to both surgical and nonsurgical treatment options the patient has requested surgical intervention and we will see them back on the day of surgery. The patient understands the risks ofsaid treatment. Questions answered in laymen terms at the bedside. The diagnosis, home exercise plan and any ongoing restrictions/ recommendations reviewed. If unable to be reached in office, I recommend evaluation at nearest Emergency Room if any symptoms worsened or new symptoms develop for requiring urgent evaluation. documented in this encounterCox [id number] History of Present illness Narrative* PAUL Boyle - 05/19/2025 8:00 AM EDT Images from the original note were not included. Subjective Patient ID: Caimla Archibald is a 49 y.o. female who presents for Diabetes. Camila is present today for follow up diabetes. Denies foot ulcers, tingling/numbness in extremities. Does check BS's at home and on average running around 150 -160. Currently on Metformin. Has been more sedentary due to her knee pain. Did see Ortho. Kitchen remodel is still in process, but she was able to cook a meal in her kitchen once so far. Sostill not eating the best. Current Outpatient Medications on File Prior to Visit Medication Sig Dispense Refill Azelastine HCl 137 MCG/SPRAY solution Administer 1 spray into affected nostril(s) in the morning and 1 spray before bedtime. Do all this for 14 days. 30 mL 0 Blood Glucose Monitoring Suppl (Blood Glucose Monitor System) w/Device kit 1 each Daily 1 kit 0 Glucose Blood (Blood Glucose Test) strip 1 each by In Vitro route Daily 100 strip 3 Lancets 30G misc 1 each Daily 100 each 3 metFORMIN (Glucophage) 500 MG tablet Take 1 tablet (500 mg) by mouth in the morning and 1 tablet (500 mg) in the evening. Take with meals. 200 tablet 1 [DISCONTINUED] citalopram (CeleXA) 40 MG tablet Take 1 tablet (40 mg) by mouth Daily 90 tablet 3 No current facility-administered medications on file prior to visit. I have reviewed and reconciled the history and medication list with the patient today. Allergies Allergen Reactions Latex Other Reaction(s): Unknown Semaglutide GI intolerance Social History Tobacco Use Smoking status: Never Smokeless tobacco: Never Vaping Use Vaping status: Never Used Substance Use Topics Alcohol use: Not Currently Comment: socially. caffeine intake: soda/pop 3-4 cans a day. Drug use: Never Family History Problem Relation Name Age of Onset Thyroid disease Mother Celena Hyperlipidemia Mother Celena Osteoporosis Mother Celena Heart failure Father Hypertension Father Polycystic ovary syndrome Sister No Known Problems Son Past Medical History: Diagnosis Date Acute anxiety Arthritis 2003 Alcantara's cyst 01/2025 Depression Diabetes mellitus (HCC) 2023 Internal derangement of left knee 07/08/2024 Leukocytosis 07/08/2024 PCOS (polycystic ovarian syndrome) Sinusitis 07/08/2024 Tear of meniscus of knee 2021 Trigger finger 2021 Past Surgical History: Procedure Laterality Date CHOLECYSTECTOMY HAND SURGERY KNEE ARTHROPLASTY 2021 KNEE SURGERY Left 12/2021 LT KNEE SCOPE PER DR SHARPE TRIGGER FINGER RELEASE Left 09/16/2021 Visit Vitals BP 130/84 Pulse 94 Ht 5' 4 Wt 291 lb SpO2 98% BMI 49.95 kg/m Smoking Status Never BSA 2.44 m Review of Systems Constitutional: Negative for [...] breath sounds. No wheezing, rhonchi or rales. Skin: General: Skin is warm and dry. Neurological: General: No focal deficit present. Mental Status: She is alert and oriented to person, place, and time. Psychiatric: Mood and Affect: Mood normal. Behavior: Behavior normal. Office Visit on 05/19/2025 Component Date Value Ref Range Status Hemoglobin A1C 05/19/2025 7.3 Final Assessment/Plan Diagnoses and all orders for this visit: Type 2 diabetes mellitus with other specified complication, without long-term current use of insulin ([facility]) - POCT Glycated hemoglobin, total Advised pt that her HgbA1c has improved slightly from 7.4 to 7.3. Encouraged pt to continue to workon gradually improving her diet. Limit simple sugars. Continue Metformin as prescribed. Will recheck HgbA1c in 3 months. Depression with anxiety - citalopram (CeleXA) 40 MG tablet; Take 1 tablet (40 mg) by mouth Daily Mood stable with the above. Refill provided. Will continue to monitor. Morbid (severe) obesity due to excess calories ([facility]) Encouraged portion control, decrease simple sugars and carbohydrates, gradually increase activity level. Aim for gradual steady weight loss. BMI 45.0-49.9, adult ([facility]) See above. Primary osteoarthritis of right knee Pt states she is going to be discussing knee replacement surgery with Dr. Sharpe. Dislocation of right knee with medial meniscus tear, sequela Encouraged resistance band exercises to start stabilizing the muscles around her knees. Advised this would improve outcome of surgery should she chose to have it done. Follow up in about 3 months (around 08/19/2025) for Diabetes. documented in this encounterCox [id number] History of Present illness Narrative* PAUL Wheeler - 04/28/2025 2:45 PM EDTAssociated Order(s): L Inj/Asp: R knee Post-Procedure Diagnose(s): Arthritis of right knee; Acute medial meniscus tear of right knee, initial encounter Images from the original note were not included. Orthopedic Office note: NAME: Camila Archibald : 1975 (EST PT, NEW PROBLEM) RT KNEE PAIN - WENT TO [facility] UC 02/06/25, HAD XR. WENT TO [facility] ER 02/11/25, HAD XR AND US. TX BY PCP 02/16 WITH PREDNISONE. ALSO HAD MRI. XRAY B/L KNEE TODAY EPIC 04/28/25 XRAY RT KNEE & TIB/FIB [facility] 02/11/25 (PUSHED TO CHANGE PACS) MRI [facility] 04/03/25 (PUSHED TO CHANGE PACS) VASCULAR US [facility] 02/11/25 (PUSHED TO CHANGE PACS) PREDNISONE 02/16/25 - SOME RELIEF PAIN ANTERIOR AND POSTERIOR. PAIN INITIALLY WOULD RADIATE DOWN MEJIA - HAS NOT HAD THIS THE PAST 3-4WKS. +TYL. ALSO HAS LEFT OVER PAIN MEDS, THINKS TYL 3 THAT SHE HAS BEEN TAKING. TRIED ICE AND HEAT WITH NO RELIEF. HAS BEEN WEARING KT TAPE WITH SOME RELIEF. SWELLING HAS GONE DONE. DENIES N/T. +POPPING, GRINDING. +GIVING OUT. 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 NO PREVIOUS SURGERY. STARTING TO AFFECT HER LT KNEE DUE TO FAVORING RT KNEE. Knee Musculoskeletal Exam Gait Gait is normal. Inspection Leg length disparity: no discrepancy Right Erythema: none Effusion: mild Edema: none Ecchymosis: none Deformity: none Alignment: normal Palpation Right Increased warmth: none Masses: none Crepitus: patellofemoral Tenderness: present Medial joint line: moderate Patella: moderate Pes anserinus: moderate Range of Motion Right Right knee range of motion is normal and full. Active extension: 0 Passive extension: 0 Active flexion: 120 Passive flexion: 125 Range of motion additional comments: + PAIN ON TERMINAL FLEXION AND EXTENSION Strength Right Right knee strength is normal. Extension: 5/5. Extension is affected by pain. Flexion: 5/5. Flexion is affected by pain. Instability Right Instability signs: none - stable Varus stress grade: normal Valgus stress grade: normal Anterior drawer: normal Medial Sherice test: positive Neurovascular Right Right knee neurovascular exam is normal. Pulses - PT: normal Posterior tibial: 2+ Capillary refill: warm and well-perfused Special Signs Right Right knee special signs are normal. Straight leg raise: normal Patellar compression: mild Patellar apprehension: mild General Constitutional: appears stated age Labored breathing: no Psychiatric: normal mood and affect Neurological: alert Skin: intact Lymphadenopathy: none Orders Placed This Encounter Procedures L Inj/Asp This order was created via procedure documentation XR knee 1-2 views bilateral Is the patient ?: No Reason for exam:: pain L Inj/Asp: R knee on 04/28/2025 4:39 PM Indications: pain Details: 22 G needle, anterolateral approach Medications: 40 mg methylPREDNISolone acetate 40 MG/ML Outcome: tolerated well, no immediate complications E UTILIZING ASEPTIC TECHNIQUE PT GIVEN INJECTION IN RIGHT KNEE, NEUROVASC INTACT S/P INJ, TOLERATEDWELL Procedure, treatment alternatives, risks and benefits explained, specific risks discussed. Consent was given by the patient. Patient was prepped and draped in the usual sterile fashion. Results - Imaging (MRI): - Right medial meniscus tear - Arthritic changes in the knee - Flattening of the articular surface medially - Advanced patellofemoral changes MRI (R) KNEE [facility] 04/03/25 1. SMALL JOINT EFFUSION. 2. BONE MARROW EDEMA INVOLVING THE MEDIAL CONDYLE OF THE FEMUR WELL THE MEDIAL ASPECT OF THE TIBIAL PLATEAU WITH ASSOCIATED ARTICULAR CARTILAGE DEFECT INVOLVING THE MEDIAL CONDYLE MEASURING 4 MM. THERE IS ALSO ASSOCIATED TEAR INVOLVING THE POSTERIOR HORN OF THE MEDIAL MENISCUS. 3. CHONDROMALACIA OF THE PATELLA. 4. MILD JOINT SPURRING.. ICD-10-CM 1. Acute pain of right knee M25.561 XR knee 1-2 views bilateral 2. Arthritis of right knee M17.11 3. Acute medial meniscus tear of right knee, initial encounter S83.241A F/U Dr. Sharpe s/p MRI and IA to discuss need for possible: Medial meniscotmy. Pt aware knee arthritis may persist medial joint line/ patella femoral Surgical and non surgical tx options discussed with conservative measures reviewed. Recommend ICE/ ELEVATION, continued activity modification in interim. Pt would consider surgical intervention to possibly improve symptoms. Assessment & Plan Right medial meniscus tear Exam is concerning for a right medial meniscus tear. MRI confirms this tear. Treatment plan: Surgical and nonsurgical treatment options were discussed. She is agreeable to try a cortisone injection today to see if symptoms will improve. If not, she would consider knee arthroscopy for definitive treatment. Clinical decision making: She is aware of the possibility of residual knee arthritis pain with kasey knee scope. Knee arthritis The MRI also shows arthritic changes in the knee, including flattening of the articular surface medially and advanced patellofemoral changes. Clinical decision making: She noted improvement in her left knee with similar treatment, which has a similar radiographic appearance. The patient is aware of the possibility of residual knee arthritis pain with just a knee scope. Questions answered in laymen terms at the bedside. The diagnosis, home exercise plan and any ongoing restrictions/ recommendations reviewed. If unable to be reached in office, I recommend evaluation at nearest Emergency Room if any symptoms worsened or new symptoms develop for requiring urgent evaluation. Visit was preformed using [employer]-bar pilot speech recognition. documented in this [facility]05-13-2025 Telephone encounter Note* Telephone Encounter - PAUL Boyle - 04/07/2025 5:04 PM EDT Pt message Cox [id number] Miscellaneous Notes* Telephone Encounter - PAUL Boyle - 04/07/2025 5:04 PM EDT Pt message documented in this [facility]04-14-2025 History of Present illness Narrative* PAUL Boyle - 03/09/2025 3:30 PM EDT Images from the original note were not included. Subjective Patient ID: Camila Archibald is a 49 y.o. female who presents for knee pain. Camila is present today for follow up knee pain. She was seen on 02/16/25 Dx. Right Knee Osteoarthritis, rx'd Prednisone and it did help while she was on it but then about 3 - 4 days after finishing the steroid the pain came back again. No pain unless she walks on it or moves it a certain way. Describes pain like a grabbing or pinching pain. Rate pain when walking 10/10. If she just sits normal at work and does not elevate her leg it hurts. The pain is on the front inside part of her knee cap and feels like it is making her right foot swell. Current Outpatient Medications on File Prior to [...] mg) in the evening. Take with meals. 200 tablet 1 No current facility-administered medications on file prior [...] Left 12/2021 LT KNEE SCOPE PER DR SHARPE TRIGGER FINGER RELEASE Left 09/16/2021 Visit Vitals BP 124/82 Pulse 98 Resp 16 Ht 5' 4 Wt 288 lb 3.2 oz SpO2 98% BMI 49.47 kg/m Smoking Status Never BSA 2.43 m Review of Systems Constitutional: Negative for chills, fatigue and fever. Respiratory: Negative for cough, shortness of breath and wheezing. Cardiovascular: Positive for leg swelling. Negative for chest pain and palpitations. Gastrointestinal: Negative for abdominal pain, constipation, diarrhea, [...] (Moderate) present. Normal range of motion. Tenderness present over the medialjoint line and lateral joint line. No patellar tendon tenderness. No LCL laxity, MCL laxity, ACL laxity or PCL laxity. Normal alignment and normal patellar mobility. Instability Tests: Anterior drawer test negative. Posterior drawer test negative. Medial Sherice test negative and lateral Sherice test negative. Legs: Comments: Tender in area noted in drawing. Knee flexion 5-/5 on right. Skin: General: Skin is warm and dry. Neurological: General: No focal deficit present. Mental Status: She is alert and oriented to person, place, and time. Psychiatric: Mood and Affect: Mood normal. Behavior: Behavior normal. Assessment/Plan Diagnoses and all orders for this visit: Acute pain of right knee X-rays from the ER showed, soft tissue swelling without acute osseous abnormality evident, mild degenerative changes int he knee. US Doppler was negative for DVT at that time. Primary osteoarthritis of right knee Can use Advil she has at home as needed. Also has a prescription for [place], advised she can take one before bed as needed. Internal derangement of right knee - MR knee right wo IV contrast; Future Pt has tried OTC medication, Toradol IM, ice, rest, Prednisone without sustained relief. Will obtain MRI at this time for further evaluation, r/o occult tibial plateau fracture, meniscal tear, Alcantara's cyst, or other acute intra-articular abnormality. She would like to have this done at [facility]. Order will be faxed. Will notify pt of the results once received. Follow up for Appointment As Scheduled. documented in this encounterCox [id number] History of Present illness Narrative* PAUL Boyle - 02/16/2025 4:30 PM EDT Images from the original note were not included. HPI Knee Pain Additional comments: States she went to urgent care on 02/06/25 for right knee pain and they though it was bursa, they rx'd Toradol and it didn't help so then went to [facility] ER 02/11/25 and they diagnosedher with knee pain, they did x-rays, and US, they told her it was arthritis. She feels she is very swollen all over. [place] given and helped a little bit. Last [...] Left 12/2021 LT KNEE SCOPE PER DR SHARPE TRIGGER FINGER RELEASE Left 09/16/2021 Visit Vitals [...] relief with Ketorolac, and mild relief with [place]. Degenerative changes and soft tissue swelling seen [...] complication, without long-term current use of insulin ([facility]) Labs from 02/06/2025 reviewed with pt in [...] Urgent Care and hospital ER visits. All availablehospital records/diagnostics were reviewed and discussed with the patient. UC and ER discharge medswere reviewed. Any changes to plan are as noted. Follow up in about 3 months (around 05/19/2025) for Diabetes. documented in this encounterCox [id number] History of Present illness Narrative* PAUL Boyle - 10/07/2024 4:30 PM EST Images from the original note were not included. Subjective Patient ID: Camila Archibald is a 49 y.o. female who presents for Diabetes and Sinusitis. Diabetes Mellitus Patient presents for follow up of diabetes. Current symptoms include: hyperglycemia. Patient deniesfoot ulcerations, hypoglycemia , nausea, paresthesia of the feet, polydipsia, polyuria, visual disturbances, and vomiting. Evaluation to date has included: fasting blood sugar, fasting lipid panel, and hemoglobin A1C. Home sugars: BGs range between 150 and 200. Does take her Metformin at least withdinner, occasionally forgets to take it with lunch. [...] Left 12/2021 LT KNEE SCOPE PER DR SHARPE TRIGGER FINGER RELEASE Left 09/16/2021 Visit Vitals BP 130/76 Pulse 82 Ht 5' 4 Wt 288 lb SpO2 99% BMI 49.44 kg/m Smoking Status Never BSA 2.43 m Review of Systems Constitutional: Negative for chills, fatigue and fever. HENT: Positive for congestion, ear pain, postnasal drip, rhinorrhea, sinus pressure, sinus pain andsore throat. Respiratory: Negative for cough, shortness of [...] complication, without long-term current use of insulin ([facility]) - POCT Glycated hemoglobin, total Advised pt [...] (severe) obesity due to excess calories (CMS/HCC) Pt has lost 7 pounds since her [...] (around 01/07/2025) for Diabetes. [facility]* Diagnosis Type 2 diabetes mellitus with other specified complication, without long-term current use of insulin (CMS/HCC)- Primary Morbid (severe) obesity due to excess calories (CMS/HCC) Acute non-recurrent maxillary sinusitis documented in this encounter [facility]* Diagnosis Primary osteoarthritis of right knee- Primary Type 2 diabetes mellitus with other specified complication, without long-term current use of insulin (CMS/HCC) Morbid (severe) obesity due to excess calories (CMS/HCC) BMI 45.0-49.9, adult (CMS/HCC) documented in this encounter [facility]* Diagnosis Acute pain of right knee- Primary Primary osteoarthritis of right knee Internal derangement of right knee documented in this encounter [facility]* Diagnosis Acute pain of right knee- Primary Arthritis of right knee Acute medial meniscus tear of right knee, initial encounter documented in this encounter [facility]* Diagnosis Type 2 diabetes mellitus with other specified complication, without long-term current use of insulin (HCC)- Primary Depression with anxiety Dysthymic disorder Morbid (severe) obesity due to excess calories (CMS-HCC) BMI 45.0-49.9, adult (CMS-HCC) Primary osteoarthritis of right knee Dislocation of right knee with medial meniscus tear, sequela documented in this encounter [facility] HealthcareEvaluation note* Diagnosis Acute pain of right knee- Primary Arthritis of right knee Acute medial meniscus tear of right knee, initial encounter documented in this encounter [facility] HealthcareEvaluation noteNo assessment information availableMercy Health Clerm[facility] Work Phone: Evaluation note* Diagnosis BMI 50.0-59.9, [place] Encounter for weight management documented in this encounter [facility] HealthcareEvaluation note* Diagnosis Type 2 diabetes mellitus with other specified complication, without long-term current use of insulin ([facility])- Primary Morbid (severe) obesity due to excess calories ([facility]) Depression with anxiety Dysthymic disorder Encounter for screening mammogram for malignant neoplasm of breast Dislocation of right knee with medial meniscus tear, sequela PCOS (polycystic ovarian syndrome) Polycystic ovaries documented in this encounter [facility] HealthcareReason for referral (narrative)No reason for referral information availableMercy Health Clermont Hospital Work Phone: Summary Purpose Family History No Family History Records FoundNo Family History Records FoundNo Family History Records FoundNo Family History Records FoundNo Family History Records Found Advance Directives No Advanced Directives Records Found Advance Directive Response Recorded Date/ Time Advance Directives No July 01 025 8:31am Chief Complaint and Reason for Visit Chief Complaint Admit Date NEW RT KNEE MENISCAL TEAR NEEDS UPDATED XR July 22, 2025 8:22am M25.561 - Pain in right knee June 8:30am Reason for Visit Admit Date Obesity, morbid, BMI 40.0-49.9 July 222024 8:22am Primary osteoarthritis of right knee Aug ust 2024 8:22am Additional Source Comments INFORMATION SOURCE (unrecogn ized section and content) DATE CREATED AUTHOR 10/03/2021 [facility] DATE CREATED AUTHOR AUTHOR'S ORGANIZ ATION 08/14/2023 [facility] [facility] DATE CREATED AUTHOR AUTHOR'S ORGANIZ ATION 02/11/2025 [facility] DATE CREATED AUTHOR AUTHOR'S ORGANIZ ATION 07/26/2025 [facility] DATE CREATED AUTHOR AUTHOR'S ORGANIZ ATION 09/14/2025 [facility] Reason for Visit (unrecogniz ed section and content) ReasonCommentsDiabetesSinusitisReasonCommentsKnee PainStates she went to urgent care on 02/06/25 for right knee pain and they though it was bursa, they rx'd Toradol and it didn't help so then went to [facility] ER 02/11/25 and they diagnosed her with knee pain, they did x-rays, and US, they told her it was arthritis. She feels she is very swollen all over. [place] given and helped a little bit.Reason CommentsPainReasonCommentsDiabetesReasonCommentsPainReasonCommentsDiscuss HysterectomyReasonCommentsmedication questionsPt was started on Adipex by Dr. Waters but has not started it yet. She wants to discuss the med withyou first before she decides if she wants to take it.ReasonOnset DateCommentscan't find her surgery date08/20/2025 Care Teams (unrecognized sec tion and content) Team MemberRelationshipSpecialtyStart DateEnd Date Olaf Stern MD [address] [facility] [address] [place] [address] PCP - GeneralInternal Medicine06/08/23Team MemberRelationshipSpecialtyStart Date End Date Olaf Stern MD [address] [facility] [address] [place] [address] PCP - GeneralInternal Medicine06/08/23am MemberRelationshipSpecialtyStart Date End Date Olaf Stern MD [address] [facility] [address] [place] [address] PCP - GeneralInternal Medicine06/08/23am MemberRelationshipSpecialtyStart Date End Date Olaf Stern MD [address] [facility] [address] [place] [address] PCP - GeneralInternal Medicine06/08/23Team MemberRelationshipSpecialtyStart Date End Date Olaf Stern MD [address] [facility] [address] [place] [address] PCP - GeneralInternal Medicine06/08/23Team MemberRelationshipSpecialtyStart Date End Date Olaf Stern MD [address] [facility] [address] [place] [address] PCP - GeneralInternal Medicine06/08/23Team MemberRelationshipSpecialtyStart Date End Date Olaf Stern MD [address] [facility] [address] [place] [address] PCP - GeneralInternal Medicine06/08/23Team MemberRelationshipSpecialtyStart Date End Date Olaf Stern MD [address] [facility] [address] [place] [address] PCP - GeneralInternal Medicine06/08/23Team MemberRelationshipSpecialtyStart Date End Date Olaf Stern MD [address] [facility] [address] [place] [address] PCP - GeneralInternal Medicine06/08/23Team MemberRelationshipSpecialtyStart Date End Date Olaf Stern MD [address] [facility] [address] [place] [address] PCP - GeneralInternal Medicine06/08/23Team MemberRelationshipSpecialtyStart Date End Date Olaf Stern MD [address] [facility] [address] [place] [address] PCP - GeneralInternal Medicine06/08/23Team MemberRelationshipSpecialtyStart Date End Date Olaf Stern MD [address] [facility] [address] [place] [address] PCP - GeneralInternal Medicine06/08/23 Team Status: Active Member Role Status Dates Lorraine Roberts HYDROTREATER OPERATOR-C Primary Care Provider Active Team Status: Inactive Member Role Status Dates Adonis Gómez II, MD Attending Provider Active Start: July 22, 2025 End: July 22, 2025Lorraine Roberts NP-CPrimary Care ProviderActiveStart: July 22, 2025 End: July 22, 2025 Team Status: Active Member Role Status Dates Lorraine Roberts HYDROTREATER OPERATOR-C Primary Care Provider Active Start: July 22, 20[address] IIending ProviderActiveStart: July 22, 2025 Team Status: Inactive Member Role Status Dates Lorraine Roberts HYDROTREATER OPERATOR-C Primary Care Provider Active Start: July 22, 2025 End: July 22, 2025RobLinda Love II ProviderActiveStart: July 22, 2025 End: July 22, 2025Team MemberRelationshipSpecialtyStart DateEnd Date Olaf Stern MD [address] [facility] [address] [place] [address] PCP - GeneralChand[facility] Medical Centernal Medicine06/08/23 Goals (unrecognized section and content) Goals may be documented in a n alternate sectionGoals may be documented in an alternate section FOR RECORDS PERTAINING TO PATIENTS WHO ARE [...] BE BASED ON THE PRIMARY CLINICAL RECORDS. [facility] [employer] [facility]. provides no warranty or guarantee of the accuracy or completeness of information in this document.
--- OUTSIDE RECORDS SUMMARY | 2025-09-15 18:23 | XMS_ITS | Clinical Summary ---
Author Organization [facility] Address [address] [place] [address] Care Team Providers Care Multiple Drum Sander Helper Name Role Phone IsabellewSolange DO Unavailable [phone] Source Comments The following information is NOT included in Care Everywhere downloads:Psychiatric notes, ECG results, Cardiac Rehab notes, Pulmonary Function notes, data from [employer] (includes but not limited toPregnancy data,audiograms, eye exams, pre-surgical evaluation notes, well-child exam data).[facility] Immunizations ImmunizationAdministration DatesNext DueInfluenza, Injectable, MDCK, Quadrivalent, Preservative Free (PRN=468)11/01/2017Pfizer Monovalent (12+ yrs) SARS-COV-2 (COVID-19) vaccine, mRNA, spike protein, LNP, pres. free, 30mcg/0.3mL dose (VGA=509)11/15/2021,04/15/2021,03/25/2021 Social History Tobacco UseTypesPacks/DayYears UsedDateSmoking Tobacco: Never Assessed CommentsUnknownSex and Gender InformationValueDate RecordedSex Assigned at Not on fileLegal MpvWmjarb16/12/2023 8:39 AM EDTGender IdentityNot on fileSexual OrientationNot on file Plan of Treatment Health MaintenanceDue DateLast KtrnQwsrdgdxKzfomiptftr1977HIV Test 1992Hepatitis C Ppjzopsv76/23/1995Tdap Vnzspvm3706/17/1995Hepatitis A (HAV) Vaccine (optional start 19+ years)1996Hepatitis B (HBV) Vaccine (1 of 3 - 19+ 3-dose series)1996Tetanus (Td or Tdap) Zohpglc4606/17/1996Pap Smear 1998CRC Rdbmkgdcx31/23/2022ologuard (Stool DNA)2022FIT2022 Swqoicsnihy203COVID-19 Vaccine ( season)2025 11/15/2021, 04/15/2021, 03/25/2021Influenza Vaccine (#1)512/05/2017 Seobysnmyyt10/27/960692/, 08/20/2019Shingles (RZV) Vaccine (1 of 2) 2027Pneumococcal Vaccine(s)Aged OutNo longer eligible based on patient's age to complete this topic Procedures Procedure NamePriorityDate/TimeAssociated DiagnosisCommentsMG MAMMO SCREEN BILAT KATHY W/SHIAunbref52/12/2023 4:41 PM EDT Breast cancer screening by mammogram from Last 3 Months or Most Recently Relevant to Health Maintenance Results * MG MAMMO SCREEN BILAT KATHY W/CAD (08/07/2023 4:41 PM EDT)ComponentValueRef RangeTest MethodAnalysis TimePerformed AtPathologist SignatureBreast Density There are scattered areas of fibroglandular densities.RADIOLOGYBI-RADS Category1: NegativeRADIOLOGYEstimated lifetime Breast Cancer riskAverage (less than 15%, as per the Tyrer-Cuzick/ALEISHA model)RADIOLOGYAnatomical Region LateralityModalityMG ScreeningN/AMammographySpecimen (Source)Anatomical Location / LateralityCollection Method / VolumeCollection TimeReceived Time 08/07/2023 4:41 PM EDT Narrative 08/13/2023 3:56 PM EDT EXAM: BILATERAL SCREENING MAMMOGRAM W/TOMOSYNTHESIS AND CAD [...] Average (less than 15%, as per the Tyrer-Cuzick/ALESIHA model) NCI Lifetime Risk Score: 9.3% Procedure Note Louisa Mason MD - 08/13/2023 EXAM: BILATERAL SCREENING MAMMOGRAM W/TOMOSYNTHESIS AND CAD CLINICAL HISTORY: Patient is 48 years old and is seen for screening. The patient has nopersonal history of cancer. The patient has no family history of breastcancer. COMPARISON: This is a baseline study. TECHNIQUE: The following mammographic views were obtained: bilateral CC, CC with tomosynthesis, MLO and MLO with tomosynthesis; left axillary tail; rightXCCL and anterior mediolateral oblique. Computer-aided detection wasutilized by the radiologist in the interpretation of [...] Tyrer-Cuzick/ALEISHA model) NCI Lifetime Risk Score: 9.3% Authorizing ProviderResult TypeResult StatusChristina Adrianna Kidd DOEC MAMMOGRAPHYFinal Result from Last 3 Months or Most Recently Relevant to Health Maintenance Insurance * Guarantor: Minerva WaltersAccount TypeRelation to PatientDate of BirthPhone Billing AddressPersonal/ZkqxupIsdg1975 [facility] [place] [address] Care Teams Team MemberRelationshipSpecialtyStart DateEnd Date Solange Kidd DO [address] [place] [address] YergyjkhyMmpayumyl24/7/23
[2025-09-22 17:08] LABS: Age Gdln ACOG Testing Note (.); HPV Genotype 18,45 Negative (Negative); IGP, Aptima HPV, rfx 16/18,45 Note (.)
== END 2025-09-15 18:17 | disposition home or self-care (01) ==
LOC: LAB 18:16
PROVIDERS: PCP Internal Medicine; Visit Provider Physician Assistant
DX: Z01.419 Encounter for gynecological examination (general) (routine) without abnormal findings (principal)
CPT/HCPCS: 87624; 88175